=== PATIENT | male | born 1930 | race Caucasian/White ===

== ENCOUNTER 2016-05-17 11:13 | Inpatient (IN) | payer OTHER, BC ==
[~2016-05-17] VITALS: Ht 175.3 cm; Wt 73.0 kg
[~2016-05-17 11:13] MED LIST: ACET160S78 PO; ASPI81TA28 PO; BISA10SU7 PR; CALC-211 PO; CETI1SOL10 PO; CHOL100010 PO; CHOL4POW4 PO; DOCU-94 PO; FAMO1TAB47 PO; LACT PO; MOML PO; PLV75 PO; POLY335019 PO; PRMT25 PO; SODI1000 PO
[2016-05-17] MEDS ORDERED: SODIUM CHLORIDE 0.9% 1000ML 1,000 ML IV STA (12:02)
[2016-05-17] MEDS ORDERED: FENTANYL CITRATE INJ 50 MCG/1 ML 2 ML VIAL IV STA (12:02)
--- NOTE | 2016-05-17 12:07 | EMERGENCY ROOM VISIT NOTE ---
History Report prepared by Mamieibe: Lalitha White Under the Supervision of: Dr. Rod Peralta M.D. First contact with patient: 11:51 Chief Complaint: ABDOMINAL PAIN Stated Complaint: ABD PAIN/CONSTIPATION Nursing Triage Summary: pt to the ED via EMS from [facility] with c/o diffuse abd pain since yesterday and c/o constipation. pt had 2 BM yesterday and had one upon arrival to the ED of soft formed stool which pt was incontinent of pt has hx alzhiemers and is at his baseline mental status abd tender to palp History of Present Illness The patient is an 85 year old male who presents to the Emergency Room with complaints of persistent, diffuse abdominal pain for the past 1 day. He is accompanied by several family members and was brought to the ED via EMS from [facility], where he resides. His reports he has a history of Alzheimer's and this past week, started complaining of constipation. He was given prune juice, and had "4 small bowel movements". He had 2 bowel movements yesterday. On arrival to the ED this morning, he is incontinent and had a formed bowel movement. Yesterday he started complaining of "severe" abdominal pain and some pain around his rectum. His family states he was given Ibuprofen, which has provided some relief. His notes he is at his baseline mentation today. Source of History: patient, family, spouse/significant other () History Limited By: dementia Onset: 1 day [employer] Position: abdomen Symptom Intensity: severe Timing: other (persistent) Modifying Factors (Relieving): ibuprofen Review of Systems See HPI for pertinent positives & negatives. A total of 10 systems reviewed and were otherwise negative. 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 (14) Orthostatic hypotension (15) S/P herniorrhaphy (16) Short-term memory loss (17) Skin cancer (18) Status post placement of implantable loop recorder Surgical Problems: (1) H/O splenectomy (2) Hx of cataract surgery (3) S/P cholecystectomy (4) Status post Mohs surgery Social History Problems: (1) Acute CVA (cerebrovascular accident) Family History FH: Alzheimers disease MOTHER FH: CAD (coronary artery disease) FATHER FHx: alcohol abuse FATHER Kidney disease FATHER Social History Smoking Status: Never Smoker Alcohol Use: none Drug Use: none Marital Status: Housing Status: prison Occupation Status: retired Current/Historical Medications Scheduled Aspirin (Aspirin Ec), 81 MG PO DAILY Calcium Carbonate-Cholecalcife (Oyster Shell Calcium + D), 1 TAB PO BIDM Cetirizine Hcl (Zyrtec Childrens Allergy), 10 ML PO DAILY Cholecalciferol (D 1000), 1,000 INTER.UNIT PO DAILY Clopidogrel Bisulfate (Clopidogrel), 75 MG PO QAM Docusate Sodium (Colace), 1 CAP PO BID Famotidine (Pepcid), 20 MG PO DAILY Lactase (Lactaid), 3,000 UNITS PO TID Lactobacillus (Acidophilus), 1 CAP PO TID Midodrine (Midodrine HCl), 2.5 MG PO BID Polyethylene Glycol 3350 (Miralax), 17 GM PO DAILY [Sodium Chloride Tab], 1 GM PEG DAILY Scheduled PRN Acetaminophen (Tylenol Children's Susp), 20.3 ML PO Q4 PRN for Pain Bisacodyl (Bisac-Evac), 1 SUPP [place] DAILY PRN for Constipation Magnesium Hydroxide (Milk Of Magnesia), 30 ML PO DAILY PRN for Constipation Allergies Coded Allergies: Aspartame (Verified Allergy, Unknown, UNK, 05/17/16) Cephalexin (Verified Allergy, Unknown, UNK, 05/17/16) Lactose (Verified Allergy, Unknown, 05/17/16) LACTOSE INTOLERANT Yellow Dye (Verified Allergy, Unknown, UNK, 05/17/16) Donepezil (Verified Adverse Reaction, Unknown, sleepling too much, 08/15/15 ) gmg Rivastigmine (Verified Adverse Reaction, Unknown, drowsiness, 08/15/15) gmg Physical Exam Vital Signs Date Time Temp Pulse Resp B/P Pulse Ox O2 Delivery O2 Flow Rate FiO2 05/17/16 15:10 82 16 161/95 97 05/17/16 13:06 83 24 165/80 96 Room Air 2/26/17 11:29 36.6 92 20 132/106 96 Physical Exam GENERAL: Patient is elderly and demented appearing. HEENT: No acute trauma, normocephalic atraumatic, mucous membranes moist, no nasal congestion, no scleral icterus. NECK: No stridor, no adenopathy, no meningismus, trachea is midline. LUNGS: No dyspnea. Clear to auscultation and equal bilaterally. No wheeze, no rhonchi. HEART: Regular rate and rhythm. No murmurs, rubs, gallops appreciated. ABDOMEN: Soft, distended abdomen with diffuse tenderness. Decreased bowel sounds in left lower abdomen. BACK: No midline tenderness, no CVA tenderness EXTREMITIES: Normal motion all extremities, no cyanosis, no edema. NEUROLOGIC: Alert and oriented, no acute motor or sensory deficits, no focal weakness, cranial nerves grossly intact. SKIN: No rash, no jaundice, no diaphoresis. Medical Decision & Procedures ER Provider Diagnostic Interpretation: This CT scan was reviewed and interpreted by the radiologist and reviewed by myself. ABDOMEN AND PELVIS CT WITH IV CONTRAST IMPRESSION: 1. Moderate to large amount well-formed stool seen within the colon and rectum. This is most pronounced at the rectum which is distended up to 10 cm. 2. No evidence for bowel obstruction. 3. Fullness within the right extrarenal pelvis. No hydronephrosis. No ureteral calculi. 4. Prior splenectomy. Nodular appearance the pancreatic tail is likely due to accessory splenic tissue. Electronically signed by: Heri Rosado M.D. 05/17/2016 1:26 PM Laboratory Results 05/17/16 11:15 Red Blood Count 4.21, Mean Corpuscular Volume 99.3, Mean Corpuscular Hemoglobin 33.7, Mean Corpuscular Hemoglobin Concent 34.0, Mean Platelet Volume 13.1, Neutrophils (%) (Auto) 71.3, Lymphocytes (%) (Auto) 14.3, Monocytes (%) (Auto) 13.5, Eosinophils (%) (Auto) 0.4, Basophils (%) (Auto) 0.2, Neutrophils # (Auto ) 8.15, Lymphocytes # (Auto) 1.64, Monocytes # (Auto) 1.54, Eosinophils # (Auto ) 0.05, Basophils # (Auto) 0.02 05/17/16 11:15 Test 05/17/16 11:15 05/17/16 14:00 White Blood Count 11.43 K/uL (4.8-10.8) Red Blood Count 4.21 M/uL (4.7-6.1) Hemoglobin 14.2 g/dL (14.0-18.0) Hematocrit 41.8 % (42-52) Mean Corpuscular Volume 99.3 fL (80-100) Mean Corpuscular Hemoglobin 33.7 pg (25-34) Mean Corpuscular Hemoglobin Concent 34.0 g/dl (32-36) Platelet Count 288 K/uL (130-400) Mean Platelet Volume 13.1 fL (7.4-10.4) Neutrophils (%) (Auto) 71.3 % Lymphocytes (%) (Auto) 14.3 % Monocytes (%) (Auto) 13.5 % Eosinophils (%) (Auto) 0.4 % Basophils (%) (Auto) 0.2 % Neutrophils # (Auto) 8.15 K/uL (1.4-6.5) Lymphocytes # (Auto) 1.64 K/uL (1.2-3.4) Monocytes # (Auto) 1.54 K/uL (0.11-0.59) Eosinophils # (Auto) 0.05 K/uL (0-0.5) Basophils # (Auto) 0.02 K/uL (0-0.2) RDW Standard Deviation 49.4 fL (36.4-46.3) RDW Coefficient of Variation 13.7 % (11.5-14.5) Immature Granulocyte % (Auto) 0.3 % Immature Granulocyte # (Auto) 0.03 K/uL (0.00-0.02) Prothrombin Time 11.4 SECONDS (9.0-12.0) Prothromb Time International Ratio 1.1 (0.9-1.1) Anion Gap 7.0 mmol/L (3-11) Estimated GFR () 53.5 Estimated GFR (Non- 46.1 BUN/Creatinine Ratio 27.4 (10-20) Calcium Level 9.4 mg/dl (8.5-10.1) Total Bilirubin 0.9 mg/dl (0.2-1) Direct Bilirubin 0.1 mg/dl (0-0.2) Aspartate Amino Transf (AST/SGOT) 28 U/L (15-37) Alanine Aminotransferase (ALT/SGPT) 20 U/L (12-78) Alkaline Phosphatase 67 U/L (45-117) Total Protein 7.9 gm/dl (6.4-8.2) Albumin 3.7 gm/dl (3.4-5.0) Lipase 190 U/L (73-393) Urine Color YELLOW Urine Appearance CLOUDY (CLEAR) Urine pH 8.0 (4.5-7.5) Urine Specific [place] 1.027 (1.000-1.030) Urine Protein NEG (NEG) Urine Glucose (UA) NEG (NEG) Urine Ketones TRACE (NEG) Urine Occult Blood 1+ (NEG) Urine Nitrite POS (NEG) Urine Bilirubin NEG (NEG) Urine Urobilinogen NEG (NEG) Urine Leukocyte Esterase MODERATE (NEG) Urine WBC (Auto) >30 /hpf (0-5) Urine RBC (Auto) 0-4 /hpf (0-4) Urine Hyaline Casts (Auto) 0 /lpf (0-5) Urine Epithelial Cells (Auto) 0-5 /lpf (0-5) Urine Bacteria (Auto) 4+ (NEG) Laboratory results as reviewed by me. Medications Administered Medications (Trade) Dose Ordered Sig/Jenny Route Start Time Stop Time Status Last Admin Dose Admin Sodium Chloride (Nss 1000ml) 1,000 ml @ 75 mls/hr [id number] STAT IV 05/17/16 12:02 05/17/16 16:48 DC 05/17/16 12:17 75 MLS/HR Fentanyl Citrate 50 mcg 50 mcg NOW STAT IV 05/17/16 12:02 05/17/16 12:04 DC 05/17/16 12:16 50 MCG Sodium Chloride (Nss 500ml) 500 ml @ 999 mls/hr Q31M STAT IV 05/17/16 12:40 05/17/16 13:10 DC 05/17/16 13:18 999 MLS/HR Bisacodyl (Dulcolax Supp) 10 mg NOW STAT WY 05/17/16 14:48 05/17/16 14:49 DC 05/17/16 15:53 10 MG ED Course 1158: The patient was evaluated in room C12B. A complete history and physical exam was performed. 1202: Fentanyl 50 mcg IV, NSS 1000 ml @ 75 mls/hr IV. 1240: NSS 500 ml @ 999 mls/hr IV. 1330: Soap Suds Enema, 1 WY. 1330: I reevaluated the patient. His family is requesting he gets a straight catheter due to a history of urine infections. 1440: I removed 2 to 3 large softball size pieces of stool from his proximal rectum. The patient tolerated the procedure well. 1448: Lactulose 30 gm PO, Bisacodyl 10 mg WY. 1500: I reevaluated the patient. He is resting comfortably. His states she thinks he is more confused than normal and cannot go back to [facility], where he resides. 1508: I discussed the patient's case with Sammie Salcido PA-C, [facility]ist. The patient will be further evaluated. 1547: Lactulose 20 gm PO. 0600: Levaquin 750 mg IV. Medical Decision Differential: Appendicitis, Diverticulitis, PUD/Gastritis, Biliary Pathology, UTI, Pyelonephritis, Renal Colic, Bowel Obstruction, Aortic Pathology, Acute Coronary Syndrome, amongst other pathologies entertained. 85 yr old male brought in by family for evaluation abdominal pain in setting of constipation and now with liquid stools. He has significant dementia though family notes he is not acting himself. CT without findings other than severe constipation. Patient is unable to tolerate Enema, thus digital rectal disimpaction done with massive amount of stool removed from rectum. UA cath consistent with UTI. Given reported worsening mental status family wishes patient to be admitted. He has diffuse abdominal pain that vastly improved after rectal disimpaction. Stable. I suggested attempt at outpatient treatment though family is not OK with this and do not feel comfortable with [facility] going back to [facility]. Initially ordered levaquin for UTI with keflex allergy, though hospitalist will use Rocephin thus levaquin cancelled. Given lactulose and dulcolax for further GI clearance. Consults Time Called: 1505 Consulting Physician: Sammie Salcido PA-C, [facility]grace Returned Call: [phone] I discussed the patient's case with Sammie Salcido PA-C, [facility]ist. The patient will be further evaluated. Impression Primary Impression: Confusion Additional Impressions: UTI (urinary tract infection) Constipation Scribe Attestation The scribe's documentation has been prepared under my direction and personally reviewed by me in its entirety. I confirm that the note above accurately reflects all work, treatment, procedures, and medical decision making performed by me. Departure Information Dispostion Being Evaluated By Hospitalist Referrals No Doctor, Assigned (PCP) Patient Instructions [facility] Health Problem Qualifiers Additional Impressions: UTI (urinary tract infection) Urinary tract infection type: acute cystitis Hematuria presence: without hematuria Qualified Codes: N30.00 - Acute cystitis without hematuria Constipation Constipation type: slow transit constipation Qualified Codes: K59.01 - Slow transit constipation
[2016-05-17 12:10] LABS: BASO % 0.2 %; BASO ABS # 0.02 K/uL (0-0.2); COMPLETE YES; EOS % 0.4 %; HEMATOCRIT 41.8 % (42-52); IG% 0.3 %; LYMPH % 14.3 %; LYMPH ABS # 1.64 K/uL (1.2-3.4); MEAN CELL VOLUME 99.3 fL (80-100); MEAN CORPUSCULAR HEMOGLOBIN 33.7 pg (25-34); MEAN PLATELET VOLUME 13.1 fL (7.4-10.4); MONO % 13.5 %; NEUT % 71.3 %; PLATELET COUNT 288 K/uL (130-400); RED BLOOD COUNT 4.21 M/uL (4.7-6.1); WHITE BLOOD COUNT 11.43 K/uL (4.8-10.8)
[2016-05-17 12:21] LABS: BLOOD UREA NITROGEN 38 mg/dl (7-18); BUN/CREATININE RATIO 27.4 (10-20); CALCIUM 9.4 mg/dl (8.5-10.1); CARBON DIOXIDE 29 mmol/L (21-32); CHLORIDE 99 mmol/L (98-107); GLUCOSE 94 mg/dl (70-99); POTASSIUM 4.2 mmol/L (3.5-5.1); SODIUM 135 mmol/L (136-145)
[2016-05-17 12:24] LABS: ALKALINE PHOSPHATASE 67 U/L (45-117); ALT/SGPT 20 U/L (12-78); AST/SGOT 28 U/L (15-37)
[2016-05-17] MEDS ORDERED: OPTIRAY 320 IV PRN (12:30)
[2016-05-17] MEDS ORDERED: CHOL100041 PO (12:39)
[2016-05-17] MEDS ORDERED: CETI1SYP22 PO (12:39)
[2016-05-17] MEDS ORDERED: SODIUM CHLORIDE PEG (12:39)
[2016-05-17] MEDS ORDERED: SODIUM CHLORIDE 0.9% 500ML 500 ML IV STA (12:40)
--- NOTE | 2016-05-17 13:28 | DIAGNOSTIC IMAGING REPORT ---
ABDOMEN AND PELVIS CT WITH IV CONTRAST CT DOSE: 491.54 mGy.cm HISTORY: diffuse abdominal pain, h/o surg 18 yrs ago TECHNIQUE: Multiaxial CT images of the abdomen and pelvis were performed following the use of intravenous contrast. COMPARISON STUDY: Abdomen and pelvis CT 10/25/2013. FINDINGS: Mild dependent changes seen within the lung bases. No pneumoperitoneum. No pneumatosis. No suspicious lytic or blastic osseous lesions. The spleen is surgically absent. Nodular appearance to the pancreatic tail remains unchanged. This could be due to accessory splenic tissue. The liver and adrenal glands are unremarkable. Normal bladder. Prior prostatectomy. Large amount of stool within the rectum which is distended up to 10 cm. There is a rectosigmoid anastomosis present. There is a right extrarenal pelvis which demonstrates mild fullness. No hydronephrosis. No ureteral calculi identified. No dilated loops of small bowel to suggest an obstruction. The appendix is likely surgically absent. No retroperitoneal lymphadenopathy. Moderate to large amount of stool seen throughout the colon. This is most pronounced at the transverse colon. Suspect prior right hemicolectomy. The gallbladder is not identified and is likely surgically absent. IMPRESSION: 1. Moderate to large amount well-formed stool seen within the colon and rectum. This is most pronounced at the rectum which is distended up to 10 cm. 2. No evidence for bowel obstruction. 3. Fullness within the right extrarenal pelvis. No hydronephrosis. No ureteral calculi. 4. Prior splenectomy. Nodular appearance the pancreatic tail is likely due to accessory splenic tissue. Electronically signed by: Heri Rosado M.D. 05/17/2016 1:26 PM Dictated Date/Time: 05/17/2016 1:19 PM
[2016-05-17] MEDS ORDERED: SOAP SUDS ENEMA PR STA (13:30)
[2016-05-17 14:36] LABS: URINE APPEARANCE CLOUDY (CLEAR); URINE BILIRUBIN NEG (NEG); URINE COLOR YELLOW; URINE EPITHELIAL CELL AUTO 0-5 /lpf (0-5); URINE NITRITE POS (NEG); URINE SPECIFIC GRAVITY 1.027 (1.000-1.030); UROBILINOGEN NEG (NEG); ZZURINE CULT IF INDIC CATH YES
[2016-05-17 14:40] LABS: MANUAL MICROSCOPIC REQUIRED? NO; REVIEW REQ? NO
[2016-05-17] MEDS ORDERED: LACTULOSE SYRUP 20 GM/30 ML UDC PO STA ×2 (14:48→15:47)
[2016-05-17] MEDS ORDERED: BISACODYL 10 MG SUPP PR STA (14:48)
[2016-05-17] MEDS ORDERED: FAMO20TA9 PO (15:35)
[2016-05-17] MEDS ORDERED: LACTCAP3 PO (15:35)
[2016-05-17] MEDS ORDERED: LACT3000 PO (15:35)
[2016-05-17] MEDS ORDERED: ONDANSETRON INJ 2 MG/ML 2 ML VIAL IV PRN (15:45)
[2016-05-17 15:53] LABS: INR 1.1 (0.9-1.1); PROTHROMBIN TIME (PATIENT) 11.4 SECONDS (9.0-12.0)
[2016-05-17] MEDS ORDERED: BISACODYL 10 MG SUPP PR PRN (16:00)
[2016-05-17] MEDS ORDERED: MAGNESIUM HYDROXIDE SUSP 30 ML UDC PO PRN (16:00)
--- NOTE | 2016-05-17 16:04 | History and Physical ---
History & Physical Date & Time of Service: May 17, 2016 at 15:45 Chief Complaint: Abd Pain/Constipation Primary Care Physician: Rober Ramirez D.O. History of Present Illness Source: patient This is an 85 y/o male with PMHx of CVA, Chronic afib not on anticoagulation, CKD stage 3, dementia, and other problems as outlined below who presents to the ED from [facility] c/o diffuse abdominal pain since yesterday. History is primarily obtained from at bedside as patient is unable to provide clear history due to dementia. Per , yesterday afternoon patient started complaining of diffuse abdominal pain and rectal pain. Pain was aggravated when pt was in a seated position. Last normal BM was 5 days ago. He was given prune juice, miralax and MOM at [facility] with only small BMs. Patient has a history of CVA x 3 from which he sustained short term memory deficits. Patient has chronic afib however he is no longer on anticoagulation as he is a fall risk. Pt denies fever/chills, chest pain, SOB, N/V, bladder issues, LE edema , calf pain, lightheadedness/dizziness. In the ED, vitals are stable. UA 4+ bacteria and + nitrites. CT abd/pelvis + large amounts of stool in colon and rectum. ED physician disimpacted large amounts of stool. Pt is currently comfortable and will be admitted for further evaluation and treatment. Past Medical/Surgical History Medical Problems: (1) Atrial fibrillation Permanent Comment: paroxysmal, anticoagulated on Coumadin Status: Chronic (2) Calculus Of Kidney Permanent Comment: s/p stone extraction Status: Resolved (3) carcinoma of the appendix Status: Resolved (4) Carpal tunnel syndrome Status: Chronic (5) CVA (cerebral infarction) Status: Chronic (6) Dementia Status: Chronic (7) GERD (gastroesophageal reflux disease) Status: Chronic (8) Hyperlipidemia Nec/Nos Status: Chronic (9) Hypokalemia Status: Chronic (10) Lactose intolerance Status: Chronic (11) Malign Neopl Prostate Permanent Comment: s/p radical prostate removal Status: Resolved (12) Neuropathy Status: Chronic (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 Status: Chronic (14) Orthostatic hypotension Status: Chronic (15) S/P herniorrhaphy Status: Resolved (16) Short-term memory loss Status: Chronic (17) 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 Status: Resolved (18) Status post placement of implantable loop recorder Status: Chronic Surgical Problems: (1) H/O splenectomy Status: Chronic (2) Hx of cataract surgery Status: Chronic (3) S/P cholecystectomy Status: Chronic (4) Status post Mohs surgery Status: Chronic Family History FH: Alzheimers disease MOTHER FH: CAD (coronary artery disease) FATHER FHx: alcohol abuse FATHER Kidney disease FATHER Social History Smoking Status: Never Smoker Alcohol Use: none Drug Use: none Marital Status: Housing status: other ([facility]) 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) Immunizations History of Influenza Vaccine: Yes Influenza Vaccine Date: Dec 28, 2010 History of Tetanus Vaccine?: Yes History of Pneumococcal: Yes History of Hepatitis B Vaccine: No Multi-Drug Resistant Organisms History of MDRO: No Allergies Coded Allergies: Aspartame (Verified Allergy, Unknown, UNK, 05/17/16) Cephalexin (Verified Allergy, Unknown, UNK, 05/17/16) Lactose (Verified Allergy, Unknown, 05/17/16) LACTOSE INTOLERANT Yellow Dye (Verified Allergy, Unknown, UNK, 05/17/16) Donepezil (Verified Adverse Reaction, Unknown, sleepling too much, 08/15/15 ) gmg Rivastigmine (Verified Adverse Reaction, Unknown, drowsiness, 08/15/15) gmg Home Medications Scheduled Aspirin (Aspirin Ec), 81 MG PO DAILY Calcium Carbonate-Cholecalcife (Oyster Shell Calcium + D), 1 TAB PO BIDM Cetirizine Hcl (Zyrtec Childrens Allergy), 10 ML PO DAILY Cholecalciferol (D 1000), 1,000 INTER.UNIT PO DAILY Clopidogrel Bisulfate (Clopidogrel), 75 MG PO QAM Docusate Sodium (Colace), 1 CAP PO BID Famotidine (Pepcid), 20 MG PO DAILY Lactase (Lactaid), 3,000 UNITS PO TID Lactobacillus (Acidophilus), 1 CAP PO TID Midodrine (Midodrine HCl), 2.5 MG PO BID Polyethylene Glycol 3350 (Miralax), 17 GM PO DAILY [Sodium Chloride Tab], 1 GM PEG DAILY Scheduled PRN Acetaminophen (Tylenol Children's Susp), 20.3 ML PO Q4 PRN for Pain Bisacodyl (Bisac-Evac), 1 SUPP DC DAILY PRN for Constipation Magnesium Hydroxide (Milk Of Magnesia), 30 ML PO DAILY PRN for Constipation Review of Systems Constitutional: + fatigue, No chills, No fever, No weakness Eyes: No worsening of vision ENT: No hearing loss Respiratory: No cough, No shortness of breath Cardiovascular: No chest pain, No claudication, No edema Abdomen: + constipation, + pain, No GI bleeding, No diarrhea, No nausea, No vomiting Musculoskeletal: No calf pain, No swelling Genitourinary - Male: + urinary incontinence (chronic), No dysuria Neurologic: No weakness Psychiatric: No depression symptoms Endocrine: + fatigue Hematologic / Lymphatic: No abnormal bleeding/bruising Integumentary: No new/changing skin lesions Physical Exam Vital Signs Date Time Temp Pulse Resp B/P Pulse Ox O2 Delivery O2 Flow Rate FiO2 05/17/16 13:06 83 24 165/80 96 Room Air 05/17/16 11:29 36.6 92 20 132/106 96 General Appearance: WD/WN, no apparent distress, + pertinent finding (Pt is laying in bed with at bedside) Head: normocephalic, atraumatic Eyes: normal inspection ENT: hearing grossly normal Neck: supple Respiratory/Chest: chest non-tender, lungs clear, normal breath sounds, no respiratory distress Cardiovascular: regular rate, rhythm, no edema, no murmur Abdomen/GI: soft, + tenderness, + pertinent finding (BS diminished ) Back: normal inspection Extremities/Musculoskelatal: normal inspection, no calf tenderness, no pedal edema Neurologic/Psych: alert, normal mood/affect, oriented x 3 Skin: normal color, warm/dry Diagnostics Laboratory Results Results Past 24 Hours Test 05/17/16 11:15 05/17/16 14:00 05/17/16 15:41 Range/Units White Blood Count 11.43 4.8-10.8 K/uL Red Blood Count 4.21 4.7-6.1 M/uL Hemoglobin 14.2 14.0-18.0 g/dL Hematocrit 41.8 42-52 % Mean Corpuscular Volume 99.3 80-100 fL Mean Corpuscular Hemoglobin 33.7 25-34 pg Mean Corpuscular Hemoglobin Concent 34.0 32-36 g/dl Platelet Count 288 130-400 K/uL Mean Platelet Volume 13.1 7.4-10.4 fL Neutrophils (%) (Auto) 71.3 % Lymphocytes (%) (Auto) 14.3 % Monocytes (%) (Auto) 13.5 % Eosinophils (%) (Auto) 0.4 % Basophils (%) (Auto) 0.2 % Neutrophils # (Auto) 8.15 1.4-6.5 K/uL Lymphocytes # (Auto) 1.64 1.2-3.4 K/uL Monocytes # (Auto) 1.54 0.11-0.59 K/uL Eosinophils # (Auto) 0.05 0-0.5 K/uL Basophils # (Auto) 0.02 0-0.2 K/uL RDW Standard Deviation 49.4 36.4-46.3 fL RDW Coefficient of Variation 13.7 11.5-14.5 % Immature Granulocyte % (Auto) 0.3 % Immature Granulocyte # (Auto) 0.03 0.00-0.02 K/uL Sodium Level 135 136-145 mmol/L Potassium Level 4.2 3.5-5.1 mmol/L Chloride Level 99 98-107 mmol/L Carbon Dioxide Level 29 21-32 mmol/L Anion Gap 7.0 3-11 mmol/L Blood Urea Nitrogen 38 7-18 mg/dl Creatinine 1.40 0.60-1.40 mg/dl Estimated GFR () 53.5 Estimated GFR (Non- 46.1 BUN/Creatinine Ratio 27.4 10-20 Random Glucose 94 70-99 mg/dl Calcium Level 9.4 8.5-10.1 mg/dl Total Bilirubin 0.9 0.2-1 mg/dl Direct Bilirubin 0.1 0-0.2 mg/dl Aspartate Amino Transf (AST/SGOT) 28 15-37 U/L Alanine Aminotransferase (ALT/SGPT) 20 12-78 U/L Alkaline Phosphatase 67 45-117 U/L Total Protein 7.9 6.4-8.2 gm/dl Albumin 3.7 3.4-5.0 gm/dl Lipase 190 73-393 U/L Urine Color YELLOW Urine Appearance CLOUDY CLEAR Urine pH 8.0 4.5-7.5 Urine Specific [place] 1.027 1.000-1.030 Urine Protein NEG NEG Urine Glucose (UA) NEG NEG Urine Ketones TRACE NEG Urine Occult Blood 1+ NEG Urine Nitrite POS NEG Urine Bilirubin NEG NEG Urine Urobilinogen NEG NEG Urine Leukocyte Esterase MODERATE NEG Urine WBC (Auto) >30 0-5 /hpf Urine RBC (Auto) 0-4 0-4 /hpf Urine Hyaline Casts (Auto) 0 0-5 /lpf Urine Epithelial Cells (Auto) 0-5 0-5 /lpf Urine Bacteria (Auto) 4+ NEG Microbiology Results 05/17/16 Urine Culture, Received Pending Diagnostic Radiology CT ABD/PELVIS IMPRESSION: 1. Moderate to large amount well-formed stool seen within the colon and rectum. This is most pronounced at the rectum which is distended up to 10 cm. 2. No evidence for bowel obstruction. 3. Fullness within the right extrarenal pelvis. No hydronephrosis. No ureteral calculi. 4. Prior splenectomy. Nodular appearance the pancreatic tail is likely due to accessory splenic tissue. Impression Assessment and Plan ABDOMINAL PAIN SECONDARY TO CONSTIPATION pt presented with diffuse abd pain; last BM 5 days ago -admit to med/surg -CT abd/pelvis + moderate to large amount well-formed stool seen within the colon and rectum. This is most pronounced at the rectum which is distended up to 10 cm. -digital disimpaction in the ED -cont bowel regimen -monitor UTI -afebrile with mild leukocytosis -UA 4+ bacteria and + nitrites; urine cx-pending -start IVF and Rocephin -pt chronically incontinent of urine; not complaining of urinary sxs CHRONIC AFIB -EKG NSR -not on anticoagulation 2* fall risk -cont ASA -monitor CKD STAGE 3 -creatinine is around baseline at 1.4 -monitor daily and avoid nephrotoxic agents when able ORTHOSTATIC HYPOTENSION -cont midodrine -fall precautions GERD -cont Pepcid DYSLIPIDEMIA -not on medication DVT PROPHYLAXIS -high risk 2* afib -subq heparin CODE STATUS -DNR per discussion with at bedside upon admission DISPO -Pt seen in collaboration with Dr. Scott. Please see her addendum for further details. Thanks! VTE Prophylaxis VTE Risk Assessment Done? Y/N: Yes Risk Level: Moderate
[2016-05-17] MEDS ORDERED: PATIENT'S HEIGHT AND/OR WEIGHT NEEDED SCH (16:15)
[2016-05-17] MEDS ORDERED: TRAMADOL HCL 50 MG TAB PO PRN (17:00)
[2016-05-17] MEDS: MIDODRINE 2.5 MG TAB PO SCH (17:00)
[2016-05-17 17:10] VITALS: BP 165/80; PULSE 78; TEMP 36.7; O2SAT 95
--- NOTE | 2016-05-17 17:11 | Progress Note ---
Progress Note Date of Service May 17, 2016. Progress Note Patient was seen and evaluated with [place] Merino. Patient came in with c/o abdominal pain, CT scan shows- stools within colon and rectum. Had digital disimpaction in ED - had significant stools out On exam, AAOX3, disroriented x 3 as per baseline, Abd- soft, mild tenderness in suprapubic region, BS present, Lungs- clear, Heart-s1, s2 normal, Ext- no edema ASSESSMENT AND PLAN : ABDOMINAL PAIN SECONDARY TO CONSTIPATION Pt presented with diffuse abd pain; last BM 5 days ago S/P Digital disimpaction by ED physician- significant amount of stool was out -Work up - CT abd/pelvis + moderate to large amount well-formed stool seen within the colon and rectum. This is most pronounced at the rectum which is distended up to 10 cm. -cont bowel regimen -monitor UTI -afebrile with mild leukocytosis -UA 4+ bacteria and + nitrites; urine cx-pending - IVF and Rocephin -pt chronically incontinent of urine; not complaining of urinary sxs CHRONIC AFIB -EKG NSR -not on anticoagulation 2* fall risk -cont ASA -monitor CKD STAGE 3 -creatinine is around baseline at 1.4 -monitor and avoid nephrotoxic agents when able ORTHOSTATIC HYPOTENSION -cont midodrine -fall precautions GERD -cont Pepcid DYSLIPIDEMIA -not on medication DEMENTIA Advanced- disoriented to place, time, person. Per , this is his baseline--- > recognizes his family members but not grand kids -Monitor DVT PROPHYLAXIS -high risk 2* afib -subq heparin CODE STATUS -DNR per discussion with at bedside upon admission DISPO -Observation status Discussed with by bedside,.
[2016-05-17 17:14] VITALS: BP 165/80; PULSE 78; TEMP 36.7; O2SAT 94; Ht 175.3 cm; Wt 73.0 kg
[2016-05-17] MEDS: ACETAMINOPHEN 325 MG TAB PO PRN (17:54)
[2016-05-17] MEDS: CEFTRIAXONE SOD INJ 1 GM in DEXTROSE 5% ADD-VANTAGE 50ML 50 ML IV SCH (18:11)
[2016-05-17] MEDS: SODIUM CHLORIDE 0.9% 1000ML 1,000 ML IV SCH (18:11)
[2016-05-17] MEDS: CALCIUM CARBONATE 1250MG TAB PO SCH (18:11)
[2016-05-17] MEDS: ENOXAPARIN 40 MG/0.4 ML SYR SQ SCH (18:13)
[2016-05-17] MEDS: DOCUSATE SODIUM 100 MG CAP PO SCH (20:31)
[2016-05-17] MEDS: LACTASE 3000 UNIT TAB PO SCH (20:31)
[2016-05-17] MEDS: LACTOBACILLUS ACIDOPHILUS (FLORANEX) TAB PO SCH (20:32)
[2016-05-17 23:40] VITALS: BP 141/79; PULSE 87; TEMP 36.7; O2SAT 96
[2016-05-18] MEDS: SODIUM CHLORIDE 0.9% 1000ML 1,000 ML IV SCH (05:10)
[2016-05-18] MEDS ORDERED: LEVAQUIN 750MG / 150ML D5W IV ONE (06:00)
[2016-05-18 06:02] LABS: HEMATOCRIT 39.6 % (42-52); MEAN CELL VOLUME 102.3 fL (80-100); MEAN CORPUSCULAR HEMOGLOBIN 34.4 pg (25-34); MEAN CORPUSCULAR HGB CONC 33.6 g/dl (32-36); MEAN PLATELET VOLUME 13.1 fL (7.4-10.4); PLATELET COUNT 259 K/uL (130-400); RED BLOOD COUNT 3.87 M/uL (4.7-6.1); WHITE BLOOD COUNT 9.36 K/uL (4.8-10.8)
[2016-05-18 06:34] LABS: BUN/CREATININE RATIO 27.1 (10-20); CALCIUM 8.9 mg/dl (8.5-10.1); CREATININE 1.2 mg/dl (0.60-1.40); POTASSIUM 3.8 mmol/L (3.5-5.1)
[2016-05-18 07:25] VITALS: BP 132/70; PULSE 70; TEMP 36.9; O2SAT 99
[2016-05-18] MEDS: CALCIUM CARBONATE 1250MG TAB PO SCH ×2 (07:54→17:52)
[2016-05-18] MEDS: CLOPIDOGREL BISULFATE 75 MG TAB PO SCH (07:56)
[2016-05-18] MEDS: CHOLECALCIFEROL 1000 INTER.UNIT TAB PO SCH (07:56)
[2016-05-18] MEDS: ASPIRIN 81 MG ECTAB PO SCH (07:56)
[2016-05-18] MEDS: POLYETHYLENE (MIRALAX) 17 GM PACK PO SCH (07:56)
[2016-05-18] MEDS: MIDODRINE 2.5 MG TAB PO SCH ×2 (07:56→17:52)
[2016-05-18] MEDS: DOCUSATE SODIUM 100 MG CAP PO SCH (07:57)
[2016-05-18] MEDS: FAMOTIDINE 20 MG TAB PO SCH (07:57)
[2016-05-18] MEDS: LACTASE 3000 UNIT TAB PO SCH ×3 (07:57→20:39)
[2016-05-18] MEDS: CETIRIZINE HCL 10 MG TAB PO SCH (07:58)
[2016-05-18] MEDS: LACTOBACILLUS ACIDOPHILUS (FLORANEX) TAB PO SCH ×3 (07:58→20:39)
[2016-05-18 08:00] VITALS: O2SAT 99
--- NOTE | 2016-05-18 10:14 | Progress Note ---
Internal Med Progress Note Date of Service: May 18, 2016. Provider Documentation: SUBJECTIVE: Patient is calm, comfortable, Awake, alert, disoriented x 3 (baseline) Denies any abdominal pain, urinary burning, nausea, vomiting Has not had any BMs since on floors OBJECTIVE: Vital Signs-as noted below Exam: General-AA, Disoriented x 3, No distress Neck-Supple Lungs-AEBE, no wheezing, rhonchi, rales Heart-S1, S2 normal Abdomen-Soft, non tender, non distended, BS present Extremities-No edema Neuro-Grossly no focal deficits Lab data as noted below. ASSESSMENT & PLAN: ABDOMINAL PAIN SECONDARY TO CONSTIPATION : Pt presented with diffuse abd pain; last BM 5 days ago S/P Digital disimpaction by ED physician- significant amount of stool was out ( per ER physician -size of soft balls x 3) -Work up - CT abd/pelvis + moderate to large amount well-formed stool seen within the colon and rectum. This is most pronounced at the rectum which is distended up to 10 cm. -cont bowel regimen - Colace PO BID, Miralex 17 gram daily, Dulcolax 10 pr prn UTI : -Afebrile with mild leukocytosis -UA 4+ bacteria and + nitrites; urine cx-pending - IVF -discontinue as tolerating PO well. - IV Rocephin (Day 2) - Pt chronically incontinent of urine; not complaining of urinary sxs CHRONIC ATRIAL FIBRILLATION : -EKG NSR -Not on anticoagulation secondary to fall risk -Cont ASA -Monitor CKD STAGE 3 -creatinine is around baseline at 1.4 -Avoid nephrotoxic agents when able ORTHOSTATIC HYPOTENSION -Cont midodrine -Fall precautions GERD -cont Pepcid DYSLIPIDEMIA -not on medication DEMENTIA Advanced- disoriented to place, time, person. Per , this is his baseline--- > recognizes his family members but not grand kids -Monitor DVT PROPHYLAXIS -high risk 2* afib -subq heparin CODE STATUS -DNR per discussion with at bedside upon admission DISPO -Observation status -Plan is to discharge to [facility] once medically stable- likely in AM, Urine cx- pending Discussed with by bedside,. Vital Signs: Date Time Temp Pulse Resp B/P Pulse Ox O2 Delivery O2 Flow Rate FiO2 05/18/16 07:25 36.9 70 16 132/70 99 05/18/16 00:00 Room Air 05/17/16 23:40 36.7 87 18 141/79 96 Room Air 05/17/16 20:00 Room Air 05/17/16 17:14 36.7 78 20 165/80 94 Room Air 05/17/16 17:10 36.7 78 20 165/80 95 Room Air 05/17/16 15:10 82 16 161/95 97 05/17/16 13:06 83 24 165/80 96 Room Air 05/17/16 11:29 36.6 92 20 132/106 96 Lab Results: Results Past 24 Hours Test 05/17/16 11:15 05/17/16 14:00 05/18/16 05:33 Range/Units White Blood Count 11.43 9.36 4.8-10.8 K/uL Red Blood Count 4.21 3.87 4.7-6.1 M/uL Hemoglobin 14.2 13.3 14.0-18.0 g/dL Hematocrit 41.8 39.6 42-52 % Mean Corpuscular Volume 99.3 102.3 80-100 fL Mean Corpuscular Hemoglobin 33.7 34.4 25-34 pg Mean Corpuscular Hemoglobin Concent 34.0 33.6 32-36 g/dl Platelet Count 288 259 130-400 K/uL Mean Platelet Volume 13.1 13.1 7.4-10.4 fL Neutrophils (%) (Auto) 71.3 % Lymphocytes (%) (Auto) 14.3 % Monocytes (%) (Auto) 13.5 % Eosinophils (%) (Auto) 0.4 % Basophils (%) (Auto) 0.2 % Neutrophils # (Auto) 8.15 1.4-6.5 K/uL Lymphocytes # (Auto) 1.64 1.2-3.4 K/uL Monocytes # (Auto) 1.54 0.11-0.59 K/uL Eosinophils # (Auto) 0.05 0-0.5 K/uL Basophils # (Auto) 0.02 0-0.2 K/uL RDW Standard Deviation 49.4 52.5 36.4-46.3 fL RDW Coefficient of Variation 13.7 14.1 11.5-14.5 % Immature Granulocyte % (Auto) 0.3 % Immature Granulocyte # (Auto) 0.03 0.00-0.02 K/uL Prothrombin Time 11.4 9.0-12.0 SECONDS Prothromb Time International Ratio 1.1 0.9-1.1 Sodium Level 135 136 136-145 mmol/L Potassium Level 4.2 3.8 3.5-5.1 mmol/L Chloride Level 99 100 98-107 mmol/L Carbon Dioxide Level 29 29 21-32 mmol/L Anion Gap 7.0 7.0 3-11 mmol/L Blood Urea Nitrogen 38 33 7-18 mg/dl Creatinine 1.40 1.20 0.60-1.40 mg/dl Estimated GFR () 53.5 64.4 Estimated GFR (Non- 46.1 55.6 BUN/Creatinine Ratio 27.4 27.1 10-20 Random Glucose 94 84 70-99 mg/dl Calcium Level 9.4 8.9 8.5-10.1 mg/dl Total Bilirubin 0.9 0.2-1 mg/dl Direct Bilirubin 0.1 0-0.2 mg/dl Aspartate Amino Transf (AST/SGOT) 28 15-37 U/L Alanine Aminotransferase (ALT/SGPT) 20 12-78 U/L Alkaline Phosphatase 67 45-117 U/L Total Protein 7.9 6.4-8.2 gm/dl Albumin 3.7 3.4-5.0 gm/dl Lipase 190 73-393 U/L Urine Color YELLOW Urine Appearance CLOUDY CLEAR Urine pH 8.0 4.5-7.5 Urine Specific [place] 1.027 1.000-1.030 Urine Protein NEG NEG Urine Glucose (UA) NEG NEG Urine Ketones TRACE NEG Urine Occult Blood 1+ NEG Urine Nitrite POS NEG Urine Bilirubin NEG NEG Urine Urobilinogen NEG NEG Urine Leukocyte Esterase MODERATE NEG Urine WBC (Auto) >30 0-5 /hpf Urine RBC (Auto) 0-4 0-4 /hpf Urine Hyaline Casts (Auto) 0 0-5 /lpf Urine Epithelial Cells (Auto) 0-5 0-5 /lpf Urine Bacteria (Auto) 4+ NEG Est Creatinine Clear Calc Drug Dose 46.7 ml/min Microbiology Results 05/17/16 Urine Culture - Preliminary, Resulted Escherichia Coli
[2016-05-18 15:50] VITALS: BP 170/89; PULSE 80; TEMP 36.8; O2SAT 97
[2016-05-18 16:04] VITALS: BP 139/82
[2016-05-18] MEDS: CEFTRIAXONE SOD INJ 1 GM in DEXTROSE 5% ADD-VANTAGE 50ML 50 ML IV SCH (17:51)
[2016-05-18] MEDS: ENOXAPARIN 40 MG/0.4 ML SYR SQ SCH (17:53)
[2016-05-18] MEDS: DOCUSATE SODIUM 100 MG/10 ML UDC PO SCH (20:39)
[2016-05-18 23:53] VITALS: BP 164/77; PULSE 83; TEMP 36.8; O2SAT 96
[2016-05-19 06:43] VITALS: BP 177/88; PULSE 68; TEMP 36.7; O2SAT 97
[2016-05-19 07:28] VITALS: BP 162/75; PULSE 68
[2016-05-19] MEDS: POLYETHYLENE (MIRALAX) 17 GM PACK PO SCH (08:21)
[2016-05-19] MEDS: CLOPIDOGREL BISULFATE 75 MG TAB PO SCH (08:21)
[2016-05-19] MEDS: CETIRIZINE HCL 10 MG TAB PO SCH (08:21)
[2016-05-19] MEDS: CHOLECALCIFEROL 1000 INTER.UNIT TAB PO SCH (08:22)
[2016-05-19] MEDS: MIDODRINE 2.5 MG TAB PO SCH (08:22)
[2016-05-19] MEDS: LACTOBACILLUS ACIDOPHILUS (FLORANEX) TAB PO SCH ×2 (08:22→14:34)
[2016-05-19] MEDS: CALCIUM CARBONATE 1250MG TAB PO SCH (08:22)
[2016-05-19] MEDS: LACTASE 3000 UNIT TAB PO SCH ×2 (08:23→14:34)
[2016-05-19] MEDS: FAMOTIDINE 20 MG TAB PO SCH (08:23)
[2016-05-19] MEDS: DOCUSATE SODIUM 100 MG/10 ML UDC PO SCH (08:24)
[2016-05-19] MEDS: ACETAMINOPHEN 325 MG TAB PO PRN (08:27)
--- NOTE | 2016-05-19 09:02 | Progress Note ---
Internal Med Progress Note Date of Service: May 19, 2016. Provider Documentation: SUBJECTIVE: Patient is comfortable Awake, alert, disoriented x 3 (baseline) Denies any abdominal pain, urinary burning, nausea, vomiting Did have a BM yesterday and today OBJECTIVE: Vital Signs-as noted below Exam: General-AA, Disoriented x 3, No distress Neck-Supple Lungs-AEBE, no wheezing, rhonchi, rales Heart-S1, S2 normal Abdomen-Soft, non tender, non distended, BS present Extremities-No edema Neuro-Grossly no focal deficits Lab data as noted below. ASSESSMENT & PLAN: ABDOMINAL PAIN SECONDARY TO CONSTIPATION : Resolved Pt presented with diffuse abd pain; last BM 5 days ago S/P Digital disimpaction by ED physician- significant amount of stool was out ( per ER physician -size of soft balls x 3). Had 1 BM yesterday and today. -Work up - CT abd/pelvis + moderate to large amount well-formed stool seen within the colon and rectum. This is most pronounced at the rectum which is distended up to 10 cm. -Cont bowel regimen - Colace PO BID, Miralex 17 gram daily, Dulcolax 10 pr prn on discharge too UTI : (E coli) -Afebrile with mild leukocytosis -UA 4+ bacteria and + nitrites; urine cx-pending - IVF - discontinue as tolerating PO well. - IV Rocephin (Day 2)--> Change to PO cipro per c/s results - Pt chronically incontinent of urine; not complaining of urinary sxs CHRONIC ATRIAL FIBRILLATION : -EKG NSR -Not on anticoagulation secondary to fall risk -Cont ASA -Monitor CKD STAGE 3 -creatinine is around baseline at 1.4 -Avoid nephrotoxic agents when able ORTHOSTATIC HYPOTENSION -Cont midodrine -Fall precautions GERD -cont Pepcid DYSLIPIDEMIA -not on medication DEMENTIA Advanced- disoriented to place, time, person. Per , this is his baseline--- > recognizes his family members but not grand kids -Monitor DVT PROPHYLAXIS -high risk 2* afib -subq heparin CODE STATUS -DNR per discussion with at bedside upon admission DISPO -Observation status Ok to discharge today to [facility] . aware about todays discharge plan . Vital Signs: Date Time Temp Pulse Resp B/P Pulse Ox O2 Delivery O2 Flow Rate FiO2 05/19/16 08:00 Room Air 05/19/16 07:28 68 162/75 05/19/16 06:43 36.7 68 18 177/88 97 Room Air 05/19/16 00:00 Room Air 05/18/16 23:53 36.8 83 18 164/77 96 Room Air 05/18/16 20:00 Room Air 05/18/16 16:04 139/82 05/18/16 16:00 Room Air 05/18/16 15:50 36.8 80 18 170/89 97 Room Air
[2016-05-19] MEDS ORDERED: CPR500 PO (09:04)
--- NOTE | 2016-05-19 09:08 | Discharge Summary ---
Discharge Summary Date of Service May 19, 2016. Discharge Summary Admission Date: May 17, 2016 at 15:40 Discharge Date: May 19, 2016 Discharge Disposition: [facility] facility ([facility]) Principal Diagnosis: 1. Abdominal pain secondary to constipation 2. UTI (E coli) Secondary Diagnoses/Problems: 1. Dementia, advanced 2. CKD-II 3. GERD 4. Orthostatic hypotension 5. Dyslipidemia Procedures: IV fluids Manual disimpaction of stools CT abd/pelvis IV antibiotics Urine c/s PT/OT Consultations: None Pending Studies/Follow-Up: Instructions / Follow-Up MEDICATION CHANGES: 1. Bowel regimen as directed. Encourage PO fluids/Activity as tolerated to help with chronic constipation besides a good bowel regimen 2. Ciprofloxacin 500 mg PO BID for 5 more days to complete course of 7 days of antibiotics for UTI , E coli FOLLOW UP 1. Follow up with PCP in 1 week Medication Reconciliation New Medications: Ciprofloxacin (Ciprofloxacin HCl) 500 Mg Tab 500 MG PO BID for 5 Days Continued Medications: Acetaminophen (Tylenol Children's Susp) 160 Mg/5 Ml Susp 20.3 ML PO Q4 PRN for Pain Aspirin (Aspirin Ec) 81 Mg Tab 81 MG PO DAILY Bisacodyl (Bisac-Evac) 10 Mg Sup 1 SUPP MT DAILY PRN for Constipation Calcium Carbonate-Cholecalcife (Oyster Shell Calcium + D) 1 Tab Tab 1 TAB PO BIDM Cetirizine Hcl (Zyrtec Childrens Allergy) 1 Mg/Ml Syp 10 ML PO DAILY Cholecalciferol (D 1000) 1,000 Unit Cap 1000 INTER.UNIT PO DAILY Clopidogrel Bisulfate (Clopidogrel) 75 Mg Tab 75 MG PO QAM for 30 Days, #30 TAB Docusate Sodium (Colace) 100 Mg Cap 1 CAP PO BID for 30 Days, #60 CAP Famotidine (Pepcid) 20 Mg Tab 20 MG PO DAILY, TAB Lactase (Lactaid) 3,000 Unit Tab 3000 UNITS PO TID Lactobacillus (Acidophilus) 1 Cap Cap 1 CAP PO TID Magnesium Hydroxide (Milk Of Magnesia) 30 Ml Susp 30 ML PO DAILY PRN for Constipation, ML Midodrine (Midodrine HCl) 2.5 Mg Tab 2.5 MG PO BID Polyethylene Glycol 3350 (Miralax) 1 Pow Pow 17 GM PO DAILY, GM [Sodium Chloride Tab] () 1 GM PEG DAILY Admission Information HPI (per Admitting provider): This is an 85 y/o male with PMHx of CVA, Chronic afib not on anticoagulation, CKD stage 3, dementia, and other problems as outlined below who presents to the ED from [facility] c/o diffuse abdominal pain since yesterday. History is primarily obtained from at bedside as patient is unable to provide clear history due to dementia. Per , yesterday afternoon patient started complaining of diffuse abdominal pain and rectal pain. Pain was aggravated when pt was in a seated position. Last normal BM was 5 days ago. He was given prune juice, miralax and MOM at [facility] with only small BMs. Patient has a history of CVA x 3 from which he sustained short term memory deficits. Patient has chronic afib however he is no longer on anticoagulation as he is a fall risk. Pt denies fever/chills, chest pain, SOB, N/V, bladder issues, LE edema , calf pain, lightheadedness/dizziness. In the ED, vitals are stable. UA 4+ bacteria and + nitrites. CT abd/pelvis + large amounts of stool in colon and rectum. ED physician disimpacted large amounts of stool. Pt is currently comfortable and will be admitted for further evaluation and treatment. Physical Exam (per Admitting): General Appearance: WD/WN, no apparent distress, + pertinent finding (Pt is laying in bed with at bedside) Head: normocephalic, atraumatic Eyes: normal inspection ENT: hearing grossly normal Neck: supple Respiratory/Chest: chest non-tender, lungs clear, normal breath sounds, no respiratory distress Cardiovascular: regular rate, rhythm, no edema, no murmur Abdomen/GI: soft, + tenderness, + pertinent finding (BS diminished ) Back: normal inspection Extremities/Musculoskelatal: normal inspection, no calf tenderness, no pedal edema Neurologic/Psych: alert, normal mood/affect, oriented x 3 Skin: normal color, warm/dry Hospital Course ABDOMINAL PAIN SECONDARY TO CONSTIPATION : Resolved Pt presented with diffuse abd pain; last BM 5 days ago S/P Digital disimpaction by ED physician- significant amount of stool was out ( per ER physician -size of soft balls x 3). Had 1 BM yesterday and today. -Work up - CT abd/pelvis + moderate to large amount well-formed stool seen within the colon and rectum. This is most pronounced at the rectum which is distended up to 10 cm. -Cont bowel regimen - Colace PO BID, Miralex 17 gram daily, Dulcolax 10 pr prn on discharge too UTI : (E coli) -Afebrile with mild leukocytosis -UA 4+ bacteria and + nitrites; urine cx-pending - IVF - discontinue as tolerating PO well. - IV Rocephin (Day 2)--> Change to PO cipro per c/s results - Pt chronically incontinent of urine; not complaining of urinary sxs CHRONIC ATRIAL FIBRILLATION : -EKG NSR -Not on anticoagulation secondary to fall risk -Cont ASA -Monitor CKD STAGE 3 -creatinine is around baseline at 1.4 -Avoid nephrotoxic agents when able ORTHOSTATIC HYPOTENSION -Cont midodrine -Fall precautions GERD -cont Pepcid DYSLIPIDEMIA -not on medication DEMENTIA Advanced- disoriented to place, time, person. Per , this is his baseline--- > recognizes his family members but not grand kids -Monitor DVT PROPHYLAXIS -high risk 2* afib -subq heparin CODE STATUS -DNR per discussion with at bedside upon admission DISPO -Observation status Ok to discharge today to [facility] . aware about todays discharge plan . Total time spent on discharge = 25 minutes This includes examination of the patient, discharge planning, medication reconciliation, and communication with other providers. Discharge Instructions Discharge Goals Goal(s): Decrease discomfort, Improve function Activity Recommendations Activity Limitations: resume your previous activity . Instructions / Follow-Up Instructions / Follow-Up MEDICATION CHANGES: 1. Bowel regimen as directed. Encourage PO fluids/Activity as tolerated to help with chronic constipation besides a good bowel regimen 2. Ciprofloxacin 500 mg PO BID for 5 more days to complete course of 7 days of antibiotics for UTI , E coli FOLLOW UP 1. Follow up with PCP in 1 week Current Hospital Diet Patient's current hospital diet: Regular Diet Discharge Diet Recommended Diet: AHA Diet (Heart Healthy), Low Sodium Diet (2gm Na) Pending Studies Studies pending at discharge: no Medical Emergencies . Who to Call and When: Medical Emergencies: If at any time you feel your situation is an emergency, please call 911 immediately. . Non-Emergent Contact Non-Emergency issues call your: Primary Care Provider . . "Provider Documentation" section prepared by Barbara Scott. VTE Core Measure Inpt VTE Proph given/why not?: Enoxaparin (Lovenox)SQ
[2016-05-19 11:01] VITALS: BP 162/75; PULSE 68; TEMP 36.6; O2SAT 96
[2016-05-19] MEDS: ASPIRIN 81 MG ECTAB PO SCH (11:13)
== END 2016-05-19 15:10 | DRG 690 ==
LOC: ENRESERVDT → ENRESERVTM → EDBD 11:13 → C.EDC 11:15 → C.MED 15:40
PROVIDERS: ADMIT Internal Medicine; ATTEND Internal Medicine
DX: N30.00 Acute cystitis without hematuria (principal); K59.01 Slow transit constipation; B96.20 Unspecified Escherichia coli [E. coli] as the cause of diseases classified elsewhere; R32 Unspecified urinary incontinence; I48.2 Chronic atrial fibrillation; N18.3 Chronic kidney disease, stage 3 (moderate); I95.1 Orthostatic hypotension; K21.9 Gastro-esophageal reflux disease without esophagitis; E78.5 Hyperlipidemia, unspecified; F03.90 Unspecified dementia, unspecified severity, without behavioral disturbance, psychotic disturbance, mood disturbance, and anxiety; Z66 Do not resuscitate; Z86.73 Personal history of transient ischemic attack (TIA), and cerebral infarction without residual deficits; Z79.02 Long term (current) use of antithrombotics/antiplatelets; Z79.82 Long term (current) use of aspirin; Z79.899 Other long term (current) drug therapy; Z88.1 Allergy status to other antibiotic agents; Z82.0 Family history of epilepsy and other diseases of the nervous system; Z82.49 Family history of ischemic heart disease and other diseases of the circulatory system; Z84.1 Family history of disorders of kidney and ureter; Z81.1 Family history of alcohol abuse and dependence

== ENCOUNTER 2017-02-28 17:29 | Inpatient (IN) | payer OTHER, BC ==
[~2017-02-28] VITALS: Ht 175.3 cm; Wt 73.0 kg
[~2017-02-28 17:29] MED LIST changes: -ASPI81TA28 PO; -CETI1SOL10 PO; +CETI1SYP22 PO; -CHOL100010 PO; +CHOL100041 PO; -CHOL4POW4 PO; +CPR500 PO; -FAMO1TAB47 PO; +FAMO20TA9 PO; -LACT PO; +LACT3000 PO; +LACTCAP3 PO; -PRMT25 PO; -SODI1000 PO; +SODIUM CHLORIDE PEG
--- NOTE | 2017-02-28 17:54 | EMERGENCY ROOM VISIT NOTE ---
History Report prepared by Karol: Ricardo Ly Under the Supervision of: Dr. Kwasi De Leon D.O. First contact with patient: 17:45 Chief Complaint: RECTAL BLEEDING Stated Complaint: BLEEDING OF RECTUM History of Present Illness The patient is an 86 year old male with dementia who presents to the Emergency Room with episodes of rectal bleeding that started this afternoon. Per the patient's , the patient had severe diarrhea this morning, then had another episode around 2 hours ago, and then another episode a half hour ago. The patient was noted to have blood and mucous in the stool of the last 2 episodes. The patient is not currently complaining of anything, and denies any pain, including abdominal pain, nausea, or vomiting. Per the patient's , the patient has had a runny nose recently, but that was thought to be due to allergies. The patient has not been on any recent antibiotics. The patient is living at [facility], and some of the residents have been having diarrhea. Source of History: patient, spouse/significant other Onset: This afternoon Position: other (rectum) Symptom Intensity: 2 episodes Quality: other (bleeding and mucous) Timing: other (episodes) Associated Symptoms: + diarrhea, No nausea, No vomiting, No abdominal pain Note: Denies any pain. Review of Systems See HPI for pertinent positives & negatives. A total of 10 systems reviewed and were otherwise negative. 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 (14) Orthostatic hypotension (15) S/P herniorrhaphy (16) Short-term memory loss (17) Skin cancer (18) Status post placement of implantable loop recorder Surgical Problems: (1) H/O splenectomy (2) Hx of cataract surgery (3) S/P cholecystectomy (4) Status post Mohs surgery Social History Problems: (1) Acute CVA (cerebrovascular accident) Family History FH: Alzheimers disease MOTHER FH: CAD (coronary artery disease) FATHER FHx: alcohol abuse FATHER Kidney disease FATHER Social History Smoking Status: Never Smoker Alcohol Use: none Drug Use: none Marital Status: Housing Status: [facility] Occupation Status: retired Current/Historical Medications Scheduled Aspirin (Aspirin Ec), 81 MG PO DAILY Calcium Carbonate-Cholecalcife (Oyster Shell Calcium + D), 1 TAB PO BIDM Cholecalciferol (D 1000), 1,000 INTER.UNIT PO DAILY Clopidogrel (Plavix), 75 MG PO DAILY Docusate Sodium (Colace), 1 CAP PO BID Famotidine (Pepcid), 20 MG PO DAILY Lactase (Lactaid), 9,000 UNITS PO TIDM Lactobacillus (Acidophilus), 1 CAP PO TID Midodrine (Midodrine HCl), 2.5 MG PO BID Polyethylene Glycol 3350 (Miralax), 17 GM PO DAILY [Tylenol 500MG/5ML], 3.25 ML PO DAILY Scheduled PRN Bisacodyl (Bisac-Evac), 1 SUPP NM DAILY PRN for Constipation Magnesium Hydroxide (Milk Of Magnesia), 30 ML PO DAILY PRN for Constipation Menthol-Zinc Oxide (Calmoseptine), 1 APPLN TOP Q6 PRN for IRRITATION [Tylenol 500MG/5ML], 6.5 ML PO Q4 PRN for Pain or Fever Allergies Coded Allergies: Aspartame (Verified Allergy, Unknown, UNK, 05/17/16) Cephalexin (Verified Allergy, Unknown, UNK, 05/17/16) Lactose (Verified Allergy, Unknown, 05/17/16) LACTOSE INTOLERANT Molds & Smuts (Verified Allergy, Unknown, UNKNOWN, 02/28/17) POLLEN (Verified Allergy, Unknown, UNKNOWN, 02/28/17) FROM GMG Yellow Dye (Verified Allergy, Unknown, UNK, 05/17/16) Donepezil (Verified Adverse Reaction, Unknown, sleepling too much, 08/15/15 ) gmg Rivastigmine (Verified Adverse Reaction, Unknown, drowsiness, 08/15/15) gmg Physical Exam Vital Signs Date Time Temp Pulse Resp B/P (MAP) Pulse Ox O2 Delivery O2 Flow Rate FiO2 02/28/17 20:52 66 16 146/88 97 Room Air 02/28/17 19:13 61 16 143/78 99 Room Air 02/28/17 18:17 63 02/28/17 17:39 36.7 71 18 148/84 95 Room Air Physical Exam GENERAL: Patient is awake, alert, and in no acute distress. Patient is resting comfortably and showing no signs of anxiety EYES: The conjunctivae are clear. The pupils are round and reactive. EARS, NOSE, MOUTH AND THROAT: The nose is without any evidence of any deformity. Mucous membranes are moist tongue is midline NECK: The neck is nontender and supple. RESPIRATORY: Normal respiratory effort is noted there is no evidence of wheezing rhonchi or rales CARDIOVASCULAR: Regular rate and rhythm noted there no murmurs rubs or gallops normal S1 normal S2 GASTROINTESTINAL: The abdomen is mildly distended but soft. Stool was grossly bloody and heme-positive. MUSCULOSKELETAL/EXTREMITIES: There is no evidence of gross deformity full range of motion is noted in the hips and shoulders SKIN: There is no obvious evidence of any rash. There are no petechiae, pallor or cyanosis noted. NEUROLOGIC: Patient is at baseline according to significant other. Medical Decision & Procedures ER Provider Diagnostic Interpretation: X-ray results as stated below per interpretation by me and the radiologist. CHEST 1 VW FRONT-NOT PORTABLE, KUB HISTORY: 86 years-old Male RECTAL BLEED acute rectal bleeding COMPARISON: CT abdomen and pelvis 05/17/2016, chest radiograph 08/15/2015 TECHNIQUE: PA view of the chest with KUB radiograph FINDINGS: Cardiac silhouette is again enlarged. Electronic device overlies the left chest, unchanged. Atherosclerosis of the aorta. No pneumothorax or pleural effusion. Subsegmental left basilar opacities suggest atelectasis. The patient is slightly rotated to the left. Degenerative changes are seen within the shoulders. Bowel gas pattern is nonobstructive. Police moderate stool volume is noted throughout the transverse colon and splenic flexure. Postoperative changes are seen about the pelvis. No pneumatosis or pneumoperitoneum identified. No urolith identified. Degenerative changes are seen within the lower lumbar spine and hips. IMPRESSION: 1. Subsegmental left basilar opacities favor atelectasis. 2. Moderate volume of formed stool throughout the transverse colon is noted with a nonobstructive bowel gas pattern. 3. No pneumatosis identified. The above report was generated using voice recognition software. It may contain grammatical, syntax or spelling errors. Electronically signed by: Cameron Álvarez M.D. 02/28/2017 7:05 PM Dictated Date/Time: 02/28/2017 7:01 PM CHEST 1 VW FRONT-NOT PORTABLE, KUB HISTORY: 86 years-old Male RECTAL BLEED acute rectal bleeding COMPARISON: CT abdomen and pelvis 05/17/2016, chest radiograph 08/15/2015 TECHNIQUE: PA view of the chest with KUB radiograph FINDINGS: Cardiac silhouette is again enlarged. Electronic device overlies the left chest, unchanged. Atherosclerosis of the aorta. No pneumothorax or pleural effusion. Subsegmental left basilar opacities suggest atelectasis. The patient is slightly rotated to the left. Degenerative changes are seen within the shoulders. Bowel gas pattern is nonobstructive. Police moderate stool volume is noted throughout the transverse colon and splenic flexure. Postoperative changes are seen about the pelvis. No pneumatosis or pneumoperitoneum identified. No urolith identified. Degenerative changes are seen within the lower lumbar spine and hips. IMPRESSION: 1. Subsegmental left basilar opacities favor atelectasis. 2. Moderate volume of formed stool throughout the transverse colon is noted with a nonobstructive bowel gas pattern. 3. No pneumatosis identified. The above report was generated using voice recognition software. It may contain grammatical, syntax or spelling errors. Electronically signed by: Cameron Álvarez M.D. 02/28/2017 7:05 PM Dictated Date/Time: 02/28/2017 7:01 PM Laboratory Results 02/28/17 18:04 Red Blood Count 4.34, Mean Corpuscular Volume 103.5, Mean Corpuscular Hemoglobin 34.8, Mean Corpuscular Hemoglobin Concent 33.6, Mean Platelet Volume 12.3, Neutrophils (%) (Auto) 66.5, Lymphocytes (%) (Auto) 16.5, Monocytes (%) ( Auto) 13.0, Eosinophils (%) (Auto) 3.6, Basophils (%) (Auto) 0.2, Neutrophils # (Auto) 8.19, Lymphocytes # (Auto) 2.04, Monocytes # (Auto) 1.60, Eosinophils # ( Auto) 0.44, Basophils # (Auto) 0.03 02/28/17 18:04 Test 02/28/17 18:04 White Blood Count 12.33 K/uL (4.8-10.8) Red Blood Count 4.34 M/uL (4.7-6.1) Hemoglobin 15.1 g/dL (14.0-18.0) Hematocrit 44.9 % (42-52) Mean Corpuscular Volume 103.5 fL (80-100) Mean Corpuscular Hemoglobin 34.8 pg (25-34) Mean Corpuscular Hemoglobin Concent 33.6 g/dl (32-36) Platelet Count 271 K/uL (130-400) Mean Platelet Volume 12.3 fL (7.4-10.4) Neutrophils (%) (Auto) 66.5 % Lymphocytes (%) (Auto) 16.5 % Monocytes (%) (Auto) 13.0 % Eosinophils (%) (Auto) 3.6 % Basophils (%) (Auto) 0.2 % Neutrophils # (Auto) 8.19 K/uL (1.4-6.5) Lymphocytes # (Auto) 2.04 K/uL (1.2-3.4) Monocytes # (Auto) 1.60 K/uL (0.11-0.59) Eosinophils # (Auto) 0.44 K/uL (0-0.5) Basophils # (Auto) 0.03 K/uL (0-0.2) RDW Standard Deviation 53.1 fL (36.4-46.3) RDW Coefficient of Variation 13.9 % (11.5-14.5) Immature Granulocyte % (Auto) 0.2 % Immature Granulocyte # (Auto) 0.03 K/uL (0.00-0.02) Nucleated RBC Absolute Count (auto) 0.06 K/uL (0-0) Nucleated Red Blood Cells % 0.5 % Prothrombin Time 10.7 SECONDS (9.0-12.0) Prothromb Time International Ratio 1.0 (0.9-1.1) Activated Partial Thromboplast Time 24.9 SECONDS (21.0-31.0) Partial Thromboplastin Ratio 1.0 Anion Gap 5.0 mmol/L (3-11) Estimated GFR () 46.9 Estimated GFR (Non- 40.5 BUN/Creatinine Ratio 19.7 (10-20) Calcium Level 9.3 mg/dl (8.5-10.1) Total Bilirubin 0.3 mg/dl (0.2-1) Direct Bilirubin mg/dl (0-0.2) Aspartate Amino Transf (AST/SGOT) 20 U/L (15-37) Alanine Aminotransferase (ALT/SGPT) 24 U/L (12-78) Alkaline Phosphatase 84 U/L (45-117) Total Protein 7.7 gm/dl (6.4-8.2) Albumin 3.4 gm/dl (3.4-5.0) Lipase 584 U/L (73-393) Chemistry Specimen Hemolysis Laboratory results per my review. ED Course 174: The patient was evaluated in room B9. A complete history and physical examination were performed. 2014: Upon reevaluation, the patient is resting. I discussed results and treatment plan with him. He verbalizes agreement and understanding. The patient will be evaluated for further management and care. 2016: I discussed the patient with Dr. Ryan Smith technical marketing engineer. He will evaluate the patient for further treatment. Medical Decision Differential diagnosis: Etiologies such as diverticulosis, AVM, coagulopathy, colitis, inflammatory bowel disease, malignancy, Viviana-Anderson tear, esophagitis, peptic ulcer disease , variceal bleed, gastritis, epistaxis, fissure, hemorrhoids, as well as others were entertained. Nursing notes reviewed. The patient is an 86-year-old male who presented to the emergency department with his significant other for an evaluation of lower GI bleeding. The patient has been having mucus stool with blood noted. The patient's physical exam was not consistent with an acute surgical abdomen. I discussed the patient's laboratory and radiographic studies with him and his family members. He currently takes Plavix. For this reason I do feel he may be higher risk. I recommended stool studies be obtained but the patient was unable to produce a specimen while he was in the emergency department. Given his comorbidities I discussed his case with the on-call [facility] hospitalist group. They have agreed to evaluate the patient in the emergency department for further management and disposition. Medication Reconcilliation Current Medication List: was personally reviewed by me Blood Pressure Screening Patient's blood pressure: Elevated blood pressure Consults Time Called: 2009 Consulting Physician: Dr. Ryan Smith technical marketing engineer Returned Call: 2015 I discussed the patient with Dr. Ryan Smith technical marketing engineer. He will evaluate the patient for further treatment. Impression Primary Impression: Lower GI bleed Additional Impression: Elevated WBC count Scribe Attestation The scribe's documentation has been prepared under my direction and personally reviewed by me in its entirety. I confirm that the note above accurately reflects all work, treatment, procedures, and medical decision making performed by me. Departure Information Dispostion Being Evaluated By Hospitalist Referrals Rober Ramirez D.O. (PCP) Patient Instructions My [facility] Problem Qualifiers Additional Impression: Elevated WBC count Leukocytosis type: unspecified Qualified Codes: D72.829 - Elevated white blood cell count, unspecified
[2017-02-28 18:15] LABS: BASO % 0.2 %; BASO ABS # 0.03 K/uL (0-0.2); COMPLETE YES; EOS % 3.6 %; HEMATOCRIT 44.9 % (42-52); IG% 0.2 %; LYMPH % 16.5 %; LYMPH ABS # 2.04 K/uL (1.2-3.4); MEAN CELL VOLUME 103.5 fL (80-100); MEAN CORPUSCULAR HEMOGLOBIN 34.8 pg (25-34); MEAN CORPUSCULAR HGB CONC 33.6 g/dl (32-36); MEAN PLATELET VOLUME 12.3 fL (7.4-10.4); NEUT % 66.5 %; PLATELET COUNT 271 K/uL (130-400); RED BLOOD COUNT 4.34 M/uL (4.7-6.1); WHITE BLOOD COUNT 12.33 K/uL (4.8-10.8)
[2017-02-28] MEDS ORDERED: MENTOIN TOP (18:17)
[2017-02-28 18:23] LABS: PROTHROMBIN TIME (PATIENT) 10.7 SECONDS (9.0-12.0)
[2017-02-28] MEDS ORDERED: CLOP1TAB15 PO (18:33)
[2017-02-28 18:35] LABS: ALKALINE PHOSPHATASE 84 U/L (45-117); ALT/SGPT 24 U/L (12-78); AST/SGOT 20 U/L (15-37); BLOOD UREA NITROGEN 31 mg/dl (7-18); BUN/CREATININE RATIO 19.7 (10-20); CALCIUM 9.3 mg/dl (8.5-10.1); CARBON DIOXIDE 30 mmol/L (21-32); CHLORIDE 99 mmol/L (98-107); CREATININE 1.55 mg/dl (0.60-1.40); GLUCOSE 100 mg/dl (70-99); POTASSIUM 4.5 mmol/L (3.5-5.1); SODIUM 134 mmol/L (136-145)
[2017-02-28] MEDS ORDERED: ASPI81TA28 PO (18:46)
--- NOTE | 2017-02-28 19:06 | DIAGNOSTIC IMAGING REPORT ---
CHEST 1 VW FRONT-NOT PORTABLE, KUB HISTORY: 86 years-old Male RECTAL BLEED acute rectal bleeding COMPARISON: CT abdomen and pelvis 05/17/2016, chest radiograph 08/15/2015 TECHNIQUE: PA view of the chest with KUB radiograph FINDINGS: Cardiac silhouette is again enlarged. Electronic device overlies the left chest, unchanged. Atherosclerosis of the aorta. No pneumothorax or pleural effusion. Subsegmental left basilar opacities suggest atelectasis. The patient is slightly rotated to the left. Degenerative changes are seen within the shoulders. Bowel gas pattern is nonobstructive. Police moderate stool volume is noted throughout the transverse colon and splenic flexure. Postoperative changes are seen about the pelvis. No pneumatosis or pneumoperitoneum identified. No urolith identified. Degenerative changes are seen within the lower lumbar spine and hips. IMPRESSION: 1. Subsegmental left basilar opacities favor atelectasis. 2. Moderate volume of formed stool throughout the transverse colon is noted with a nonobstructive bowel gas pattern. 3. No pneumatosis identified. The above report was generated using voice recognition software. It may contain grammatical, syntax or spelling errors. Electronically signed by: Cameron Álvarez M.D. 02/28/2017 7:05 PM Dictated Date/Time: 02/28/2017 7:01 PM
[2017-02-28] MEDS ORDERED: TYLENOL PO ×2 (19:22)
[2017-02-28] MEDS ORDERED: MAGNESIUM HYDROXIDE SUSP 30 ML UDC PO PRN (21:00)
[2017-02-28] MEDS ORDERED: ACETAMINOPHEN 325 MG TAB PO PRN (21:00)
--- NOTE | 2017-02-28 21:17 | History and Physical ---
History & Physical Date & Time of Service: Feb 28, 2017 at 21:05 Chief Complaint: Bleeding Of Rectum Primary Care Physician: Rober Ramirez D.O. History of Present Illness Source: patient, family, clinic records, hospital records This is an 86 year old male with a PMH of paroxysmal atrial fibrillation, dementia, hx. of multiple CVAs on Plavix, CKD stage 3, HLD - presents with about three episodes of diarrhea with streaks of blood. Most of the history is obtained by the patient's and son who are at bedside. Pt. is pleasantly demented. As per family, he developed diarrhea early in the morning, in the afternoon and once prior to arrival. All episodes of diarrhea had dark streaks of blood associated with it. As per records, other patients at [facility] dementia unit have had diarrhea. No recent change in medications. No other change in health. Past Medical/Surgical History Medical Problems: (1) Atrial fibrillation Permanent Comment: paroxysmal, anticoagulated on Coumadin Status: Chronic (2) Calculus Of Kidney Permanent Comment: s/p stone extraction Status: Resolved (3) carcinoma of the appendix Status: Resolved (4) Carpal tunnel syndrome Status: Chronic (5) CVA (cerebral infarction) Status: Chronic (6) Dementia Status: Chronic (7) GERD (gastroesophageal reflux disease) Status: Chronic (8) Hyperlipidemia Nec/Nos Status: Chronic (9) Hypokalemia Status: Chronic (10) Lactose intolerance Status: Chronic (11) Malign Neopl Prostate Permanent Comment: s/p radical prostate removal Status: Resolved (12) Neuropathy Status: Chronic (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 Status: Chronic (14) Orthostatic hypotension Status: Chronic (15) S/P herniorrhaphy Status: Resolved (16) Short-term memory loss Status: Chronic (17) 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 Status: Resolved (18) Status post placement of implantable loop recorder Status: Chronic Surgical Problems: (1) H/O splenectomy Status: Chronic (2) Hx of cataract surgery Status: Chronic (3) S/P cholecystectomy Status: Chronic (4) Status post Mohs surgery Status: Chronic Family History FH: Alzheimers disease MOTHER FH: CAD (coronary artery disease) FATHER FHx: alcohol abuse FATHER Kidney disease FATHER Social History Smoking Status: Never Smoker Drug Use: none Marital Status: Housing status: other Occupational Status: retired Immunizations History of Influenza Vaccine: Yes Influenza Vaccine Date: Dec 28, 2010 History of Tetanus Vaccine?: Yes History of Pneumococcal: Yes History of Hepatitis B Vaccine: No Multi-Drug Resistant Organisms History of MDRO: No Allergies Coded Allergies: Aspartame (Verified Allergy, Unknown, UNK, 05/17/16) Cephalexin (Verified Allergy, Unknown, UNK, 05/17/16) Lactose (Verified Allergy, Unknown, 05/17/16) LACTOSE INTOLERANT Molds & Smuts (Verified Allergy, Unknown, UNKNOWN, 02/28/17) POLLEN (Verified Allergy, Unknown, UNKNOWN, 02/28/17) FROM GMG Yellow Dye (Verified Allergy, Unknown, UNK, 05/17/16) Donepezil (Verified Adverse Reaction, Unknown, sleepling too much, 08/15/15 ) gmg Rivastigmine (Verified Adverse Reaction, Unknown, drowsiness, 08/15/15) gmg Home Medications Scheduled Aspirin (Aspirin Ec), 81 MG PO DAILY Calcium Carbonate-Cholecalcife (Oyster Shell Calcium + D), 1 TAB PO BIDM Cholecalciferol (D 1000), 1,000 INTER.UNIT PO DAILY Clopidogrel (Plavix), 75 MG PO DAILY Docusate Sodium (Colace), 1 CAP PO BID Famotidine (Pepcid), 20 MG PO DAILY Lactase (Lactaid), 9,000 UNITS PO TIDM Lactobacillus (Acidophilus), 1 CAP PO TID Midodrine (Midodrine HCl), 2.5 MG PO BID Polyethylene Glycol 3350 (Miralax), 17 GM PO DAILY [Tylenol 500MG/5ML], 3.25 ML PO DAILY Scheduled PRN Bisacodyl (Bisac-Evac), 1 SUPP DE DAILY PRN for Constipation Magnesium Hydroxide (Milk Of Magnesia), 30 ML PO DAILY PRN for Constipation Menthol-Zinc Oxide (Calmoseptine), 1 APPLN TOP Q6 PRN for IRRITATION [Tylenol 500MG/5ML], 6.5 ML PO Q4 PRN for Pain or Fever Review of Systems Cannot obtain due to patient's mental status Physical Exam Vital Signs Date Time Temp Pulse Resp B/P (MAP) Pulse Ox O2 Delivery O2 Flow Rate FiO2 02/28/17 20:52 66 16 146/88 97 Room Air 02/28/17 19:13 61 16 143/78 99 Room Air 02/28/17 18:17 63 02/28/17 17:39 36.7 71 18 148/84 95 Room Air General Appearance: no apparent distress, + pertinent finding (pleasantly demented; hums to himself at baseline) Head: normocephalic, atraumatic Eyes: normal inspection ENT: hearing grossly normal Neck: supple Respiratory/Chest: chest non-tender, lungs clear, normal breath sounds, no respiratory distress, no accessory muscle use Cardiovascular: regular rate, rhythm, no edema, no murmur Abdomen/GI: normal bowel sounds, non tender, soft Extremities/Musculoskelatal: normal inspection, no calf tenderness, normal capillary refill, no pedal edema, normal range of motion Neurologic/Psych: no motor/sensory deficits, alert, + pertinent finding (+ dementia) Skin: normal color Lymphatic: no adenopathy Diagnostics Laboratory Results Results Past 24 Hours Test 02/28/17 18:04 Range/Units White Blood Count 12.33 4.8-10.8 K/uL Red Blood Count 4.34 4.7-6.1 M/uL Hemoglobin 15.1 14.0-18.0 g/dL Hematocrit 44.9 42-52 % Mean Corpuscular Volume 103.5 80-100 fL Mean Corpuscular Hemoglobin 34.8 25-34 pg Mean Corpuscular Hemoglobin Concent 33.6 32-36 g/dl Platelet Count 271 130-400 K/uL Mean Platelet Volume 12.3 7.4-10.4 fL Neutrophils (%) (Auto) 66.5 % Lymphocytes (%) (Auto) 16.5 % Monocytes (%) (Auto) 13.0 % Eosinophils (%) (Auto) 3.6 % Basophils (%) (Auto) 0.2 % Neutrophils # (Auto) 8.19 1.4-6.5 K/uL Lymphocytes # (Auto) 2.04 1.2-3.4 K/uL Monocytes # (Auto) 1.60 0.11-0.59 K/uL Eosinophils # (Auto) 0.44 0-0.5 K/uL Basophils # (Auto) 0.03 0-0.2 K/uL RDW Standard Deviation 53.1 36.4-46.3 fL RDW Coefficient of Variation 13.9 11.5-14.5 % Immature Granulocyte % (Auto) 0.2 % Immature Granulocyte # (Auto) 0.03 0.00-0.02 K/uL Nucleated RBC Absolute Count (auto) 0.06 0-0 K/uL Nucleated Red Blood Cells % 0.5 % Prothrombin Time 10.7 9.0-12.0 SECONDS Prothromb Time International Ratio 1.0 0.9-1.1 Activated Partial Thromboplast Time 24.9 21.0-31.0 SECONDS Partial Thromboplastin Ratio 1.0 Sodium Level 134 136-145 mmol/L Potassium Level 4.5 3.5-5.1 mmol/L Chloride Level 99 98-107 mmol/L Carbon Dioxide Level 30 21-32 mmol/L Anion Gap 5.0 3-11 mmol/L Blood Urea Nitrogen 31 7-18 mg/dl Creatinine 1.55 0.60-1.40 mg/dl Estimated GFR () 46.9 Estimated GFR (Non- 40.5 BUN/Creatinine Ratio 19.7 10-20 Random Glucose 100 70-99 mg/dl Calcium Level 9.3 8.5-10.1 mg/dl Total Bilirubin 0.3 0.2-1 mg/dl Direct Bilirubin 0-0.2 mg/dl Aspartate Amino Transf (AST/SGOT) 20 15-37 U/L Alanine Aminotransferase (ALT/SGPT) 24 12-78 U/L Alkaline Phosphatase 84 45-117 U/L Total Protein 7.7 6.4-8.2 gm/dl Albumin 3.4 3.4-5.0 gm/dl Lipase 584 73-393 U/L Chemistry Specimen Hemolysis Diagnostic Radiology CHEST 1 VW FRONT-NOT PORTABLE, KUB HISTORY: 86 years-old Male RECTAL BLEED acute rectal bleeding COMPARISON: CT abdomen and pelvis 05/17/2016, chest radiograph 08/15/2015 TECHNIQUE: PA view of the chest with KUB radiograph FINDINGS: Cardiac silhouette is again enlarged. Electronic device overlies the left chest, unchanged. Atherosclerosis of the aorta. No pneumothorax or pleural effusion. Subsegmental left basilar opacities suggest atelectasis. The patient is slightly rotated to the left. Degenerative changes are seen within the shoulders. Bowel gas pattern is nonobstructive. Police moderate stool volume is noted throughout the transverse colon and splenic flexure. Postoperative changes are seen about the pelvis. No pneumatosis or pneumoperitoneum identified. No urolith identified. Degenerative changes are seen within the lower lumbar spine and hips. IMPRESSION: 1. Subsegmental left basilar opacities favor atelectasis. 2. Moderate volume of formed stool throughout the transverse colon is noted with a nonobstructive bowel gas pattern. 3. No pneumatosis identified. Impression Assessment and Plan This is an 86 year old male with a PMH of paroxysmal atrial fibrillation, dementia, hx. of multiple CVAs on Plavix, CKD stage 3, HLD - presents with about three episodes of diarrhea with streaks of blood Likely Viral Gastroenteritis will r/o C. diff, check stool culture monitor H/H due to streaks of blood holding Plavix and aspirin for now should restart antiplatelets if possible due to multiple CVAs in the past IVFs and clear liquids (liquids with straw) advance diet when able NETO superimposed on CKD stage 3 likely secondary to diarrhea creatinine bumped to 1.5, baseline is closer to 1.2 will give IVFs recheck creat in AM and avoid nephrotoxic agents when able Paroxysmal A. Fib currently in NSR rate is controlled DVT ppx SCDs DNR VTE Prophylaxis VTE Risk Assessment Done? Y/N: Yes Risk Level: High
[2017-02-28] MEDS ORDERED: PRMT25 PO (22:38)
[2017-02-28 22:50] VITALS: BP 150/78; PULSE 95; TEMP 36.4; O2SAT 97
[2017-02-28] MEDS: SODIUM CHLORIDE 0.9% 1000ML 1,000 ML IV SCH (23:54)
[2017-03-01 01:08] VITALS: BP 150/78; PULSE 95; TEMP 36.4; O2SAT 98; Ht 175.3 cm; Wt 73.0 kg
[2017-03-01] MEDS: PANTOprazole SOD 40 MG TAB PO SCH ×3 (01:57→21:39)
[2017-03-01 02:51] LABS: URINE APPEARANCE CLEAR (CLEAR); URINE BILIRUBIN NEG (NEG); URINE COLOR YELLOW; URINE EPITHELIAL CELL AUTO >30 /lpf (0-5); URINE NITRITE NEG (NEG); URINE SPECIFIC GRAVITY 1.022 (1.000-1.030); UROBILINOGEN NEG (NEG)
[2017-03-01 03:10] LABS: MANUAL MICROSCOPIC REQUIRED? NO; REVIEW REQ? YES
[2017-03-01] MEDS: SODIUM CHLORIDE 0.9% 1000ML 1,000 ML IV SCH ×2 (06:25→19:08)
[2017-03-01 07:16] VITALS: BP 165/94; TEMP 36.2; O2SAT 97
[2017-03-01 07:18] LABS: BASO % 0.2 %; BASO ABS # 0.03 K/uL (0-0.2); COMPLETE YES; EOS % 3.3 %; HEMATOCRIT 42.8 % (42-52); IG% 0.3 %; LYMPH % 14.2 %; LYMPH ABS # 1.87 K/uL (1.2-3.4); MEAN CELL VOLUME 102.9 fL (80-100); MEAN CORPUSCULAR HEMOGLOBIN 34.4 pg (25-34); MEAN CORPUSCULAR HGB CONC 33.4 g/dl (32-36); MEAN PLATELET VOLUME 12.9 fL (7.4-10.4); MONO % 15.2 %; NEUT % 66.8 %; PLATELET COUNT 264 K/uL (130-400); RED BLOOD COUNT 4.16 M/uL (4.7-6.1); WHITE BLOOD COUNT 13.16 K/uL (4.8-10.8)
[2017-03-01 07:42] LABS: BUN/CREATININE RATIO 20.2 (10-20); CREATININE 1.24 mg/dl (0.60-1.40); MAGNESIUM 1.9 mg/dl (1.8-2.4); POTASSIUM 3.9 mmol/L (3.5-5.1)
[2017-03-01 08:00] VITALS: O2SAT 97
[2017-03-01] MEDS: LACTOBACILLUS ACIDOPHILUS (FLORANEX) TAB PO SCH ×3 (08:19→17:36)
[2017-03-01] MEDS: LACTASE 3000 UNIT TAB PO SCH ×3 (08:21→17:36)
[2017-03-01] MEDS: MIDODRINE 2.5 MG TAB PO SCH ×2 (08:22→17:37)
[2017-03-01] MEDS: FAMOTIDINE 20 MG TAB PO SCH (08:22)
[2017-03-01] MEDS ORDERED: NURSING VERBAL MED ORDER ONE (12:30)
[2017-03-01 13:37] VITALS: BP 163/72
--- NOTE | 2017-03-01 14:16 | Progress Note ---
Medicine Progress Note Date & Time of Visit: Mar 01, 2017 at 13:58. Subjective Pt was seen and examined Lying in bed with no distress with at bedside Pt was walking today with physical therapy As per nurse he had a very small dark brown BM this morning denies any symptoms Objective Last 8 Hrs Date Time Temp Pulse Resp B/P (MAP) Pulse Ox O2 Delivery O2 Flow Rate FiO2 03/01/17 13:37 163/72 (102) 03/01/17 08:00 97 Room Air 03/01/17 07:16 36.2 16 165/94 (117) 97 Room Air Physical Exam: General- No acute distress Head- atraumatic Eyes- PERRL, EOMI ENT- oropharynx clear Neck- supple, no JVD Lungs- clear to auscultation Heart- regular rhythm Abdomen- normal bowel sounds, soft Extremities- no pretibial edema, no calf tenderness Neuro- alert, demented PERRL, EOMI; no facial palsy; no dysarthria Skin- warm & dry Laboratory Results: Last 24 Hours Test 02/28/17 18:04 03/01/17 01:50 03/01/17 06:47 White Blood Count 12.33 K/uL 13.16 K/uL Red Blood Count 4.34 M/uL 4.16 M/uL Hemoglobin 15.1 g/dL 14.3 g/dL Hematocrit 44.9 % 42.8 % Mean Corpuscular Volume 103.5 fL 102.9 fL Mean Corpuscular Hemoglobin 34.8 pg 34.4 pg Mean Corpuscular Hemoglobin Concent 33.6 g/dl 33.4 g/dl Platelet Count 271 K/uL 264 K/uL Mean Platelet Volume 12.3 fL 12.9 fL Neutrophils (%) (Auto) 66.5 % 66.8 % Lymphocytes (%) (Auto) 16.5 % 14.2 % Monocytes (%) (Auto) 13.0 % 15.2 % Eosinophils (%) (Auto) 3.6 % 3.3 % Basophils (%) (Auto) 0.2 % 0.2 % Neutrophils # (Auto) 8.19 K/uL 8.79 K/uL Lymphocytes # (Auto) 2.04 K/uL 1.87 K/uL Monocytes # (Auto) 1.60 K/uL 2.00 K/uL Eosinophils # (Auto) 0.44 K/uL 0.43 K/uL Basophils # (Auto) 0.03 K/uL 0.03 K/uL RDW Standard Deviation 53.1 fL 51.8 fL RDW Coefficient of Variation 13.9 % 13.8 % Immature Granulocyte % (Auto) 0.2 % 0.3 % Immature Granulocyte # (Auto) 0.03 K/uL 0.04 K/uL Nucleated RBC Absolute Count (auto) 0.06 K/uL 0.02 K/uL Nucleated Red Blood Cells % 0.5 % 0.1 % Prothrombin Time 10.7 SECONDS Prothromb Time International Ratio 1.0 Activated Partial Thromboplast Time 24.9 SECONDS Partial Thromboplastin Ratio 1.0 Sodium Level 134 mmol/L 135 mmol/L Potassium Level 4.5 mmol/L 3.9 mmol/L Chloride Level 99 mmol/L 102 mmol/L Carbon Dioxide Level 30 mmol/L 29 mmol/L Anion Gap 5.0 mmol/L 4.0 mmol/L Blood Urea Nitrogen 31 mg/dl 25 mg/dl Creatinine 1.55 mg/dl 1.24 mg/dl Estimated GFR () 46.9 61.5 Estimated GFR (Non- 40.5 53.1 BUN/Creatinine Ratio 19.7 20.2 Random Glucose 100 mg/dl 96 mg/dl Calcium Level 9.3 mg/dl 9.0 mg/dl Total Bilirubin 0.3 mg/dl Direct Bilirubin mg/dl Aspartate Amino Transf (AST/SGOT) 20 U/L Alanine Aminotransferase (ALT/SGPT) 24 U/L Alkaline Phosphatase 84 U/L Total Protein 7.7 gm/dl Albumin 3.4 gm/dl Lipase 584 U/L 268 U/L Chemistry Specimen Hemolysis Urine Color YELLOW Urine Appearance CLEAR Urine pH 7.0 Urine Specific Percy 1.022 Urine Protein NEG Urine Glucose (UA) NEG Urine Ketones NEG Urine Occult Blood 2+ Urine Nitrite NEG Urine Bilirubin NEG Urine Urobilinogen NEG Urine Leukocyte Esterase TRACE Urine WBC (Auto) 1-5 /hpf Urine RBC (Auto) >30 /hpf Urine Hyaline Casts (Auto) 5-10 /lpf Urine Epithelial Cells (Auto) >30 /lpf Urine Bacteria (Auto) NEG Urine Renal Epithelial Cells /lpf Est Creatinine Clear Calc Drug Dose 44.4 ml/min Magnesium Level 1.9 mg/dl Date/Time Source Procedure Growth Status 02/28/17 23:30 Nasal MRSA DNA Surveillance Screen - Final Specimen Negative for MRSA by DNA Probe Complete Assessment & Plan Diarrhea associated with dark stools Diarrhea my be related to viral gastroenteritis KUB showd Moderate volume of formed stool throughout the transverse colon is noted with a nonobstructive bowel gas pattern. 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 Afebrile Continue monitor CBC Elevated Lipase Possible related to dehydration/ and recent GI symptoms Resolved Paroxysmal A. Fib currently in NSR rate is controlled Aspirin on hold for possible GI bleed HX CVA Will resume plavix and aspirin in am if bleeding stable Dementia stable DVT ppx SCDs (Due for possible GI bleed) CODE STATUS DNR Current Inpatient Medications: Current Inpatient Medications Medications (Trade) Dose Ordered Sig/Jenny Route Start Time Stop Time Status Last Admin Dose Admin Acetaminophen (Tylenol Tab) 650 mg Q4H PRN PO 02/28/17 21:00 03/30/17 20:59 Famotidine (Pepcid Tab) 20 mg DAILY PO 03/01/17 09:00 03/31/17 08:59 03/01/17 08:22 20 MG Lactase (Lactaid Tab) 9,000 units TIDM PO 03/01/17 08:00 03/31/17 07:59 03/01/17 11:57 9,000 UNITS Magnesium Hydroxide (Milk Of Magnesia Susp) 30 ml DAILY PRN PO 02/28/17 21:00 03/30/17 20:59 Midodrine (Proamatine Tab) 2.5 mg BID17 PO 03/01/17 09:00 03/31/17 08:59 Lactobacillus Acidophilus (Floranex Tab) 4 tab TIDM PO 03/01/17 08:00 03/31/17 07:59 03/01/17 11:57 4 TAB Pantoprazole Sodium (Protonix Tab) 40 mg BID PO 02/28/17 21:00 03/30/17 20:59 03/01/17 08:23 40 MG Sodium Chloride 1,000 ml @ 60 mls/hr [id number] IV 02/28/17 21:15 03/30/17 21:14 03/01/17 06:25 100 MLS/HR
[2017-03-01 15:30] VITALS: BP 153/65; PULSE 68; TEMP 36.7; O2SAT 99
[2017-03-01 22:34] VITALS: BP 181/80; PULSE 74; TEMP 37.2; O2SAT 94
[2017-03-02] VITALS: O2SAT 97
[2017-03-02 04:00] VITALS: O2SAT 97
[2017-03-02 05:51] LABS: HEMATOCRIT 42.4 % (42-52); MEAN CELL VOLUME 102.4 fL (80-100); MEAN CORPUSCULAR HEMOGLOBIN 34.3 pg (25-34); MEAN CORPUSCULAR HGB CONC 33.5 g/dl (32-36); MEAN PLATELET VOLUME 12.6 fL (7.4-10.4); PLATELET COUNT 256 K/uL (130-400); RED BLOOD COUNT 4.14 M/uL (4.7-6.1); WHITE BLOOD COUNT 12.39 K/uL (4.8-10.8)
[2017-03-02 06:28] LABS: BUN/CREATININE RATIO 11.6 (10-20); CALCIUM 8.7 mg/dl (8.5-10.1); CREATININE 1.1 mg/dl (0.60-1.40); POTASSIUM 3.7 mmol/L (3.5-5.1)
[2017-03-02 07:11] VITALS: BP 173/94; PULSE 76; TEMP 36.3; O2SAT 97
[2017-03-02] MEDS: LACTASE 3000 UNIT TAB PO SCH ×3 (09:07→17:06)
[2017-03-02] MEDS: LACTOBACILLUS ACIDOPHILUS (FLORANEX) TAB PO SCH ×3 (09:07→17:05)
[2017-03-02] MEDS: FAMOTIDINE 20 MG TAB PO SCH (09:07)
[2017-03-02] MEDS: PANTOprazole SOD 40 MG TAB PO SCH ×2 (09:07→20:57)
[2017-03-02] MEDS: MIDODRINE 2.5 MG TAB PO SCH ×2 (09:07→17:06)
--- NOTE | 2017-03-02 15:27 | Progress Note ---
Internal Med Progress Note Date of Service: Mar 02, 2017. Provider Documentation: SUBJECTIVE: baseline dementia , lying comfortably in bed tolerated solid diet well , no nausea complains of pain in mid abdomen , had 1-2 soft bowel movement this AM still has streaks of blood as per OBJECTIVE: Vital Signs-as noted below Exam: General-elderly gentleman , well appearing , no apparent sign of distress Eyes-sclera non icteric , PERRLA/EOMI ENT-moist oral mucosa , normal oropharynx Neck-no JVD Lungs-clear to auscultate , no wheeze or rales Heart-regular S1/S2 , no JVD , no lower ext edema Abdomen-soft, mid line healed surgical scar , bowel sound active , no pain or tenderness elicited while palpation Extremities-no rash , deformity , no open wounds Neuro-baseline dementia , oriented to person only , no focal neurological deficit Lab data as noted below. ASSESSMENT & PLAN: BLOOD IN STOOL sent form [facility] -for diarrhea /dark stool Concern for chronic constipation -leading to overflow diarrhea KUB showed Moderate volume of formed stool throughout the transverse colon is noted with a nonobstructive bowel gas pattern. -streaks of blood is stool could be possibly due to Hemorrhoidal bleeding associated with straining with constipation ordered for increased bowel regimen -Miralax BID, colace BID H&H remains stable 14.3-> 14.2 . 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 Afebrile diarrhea has resolved , stool culture ordered -sample could not be obtained UA + leukocyte esterase ordered for urine culture Elevated Lipase Possible related to dehydration/ and recent GI symptoms Resolved-normal lipase level tolerating diet D/c IVF Paroxysmal A. 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; Chronic Na at approx baseline 135 D/C IV NSS Dementia stable DVT ppx SCDs (Due for possible GI bleed) DNR/DNI DISPOSITION resident at [facility] PT/OT margy springer , at baseline functional status recommend to return back to [facility] will provide transport for return possible discharge in 1-2 days if no further episode of blood in stool Medicine follow up with Dr Ramirez Vital Signs: Date Time Temp Pulse Resp B/P (MAP) Pulse Ox O2 Delivery O2 Flow Rate FiO2 03/02/17 09:00 Room Air 03/02/17 07:11 36.3 76 18 173/94 (120) 97 Room Air 03/02/17 04:00 97 Room Air 03/02/17 00:00 97 Room Air 03/01/17 22:34 37.2 74 20 181/80 (113) 94 Room Air Lab Results: Results Past 24 Hours Test 03/02/17 05:18 Range/Units White Blood Count 12.39 4.8-10.8 K/uL Red Blood Count 4.14 4.7-6.1 M/uL Hemoglobin 14.2 14.0-18.0 g/dL Hematocrit 42.4 42-52 % Mean Corpuscular Volume 102.4 80-100 fL Mean Corpuscular Hemoglobin 34.3 25-34 pg Mean Corpuscular Hemoglobin Concent 33.5 32-36 g/dl RDW Standard Deviation 51.8 36.4-46.3 fL RDW Coefficient of Variation 13.8 11.5-14.5 % Platelet Count 256 130-400 K/uL Mean Platelet Volume 12.6 7.4-10.4 fL Sodium Level 133 136-145 mmol/L Potassium Level 3.7 3.5-5.1 mmol/L Chloride Level 99 98-107 mmol/L Carbon Dioxide Level 29 21-32 mmol/L Anion Gap 5.0 3-11 mmol/L Blood Urea Nitrogen 13 7-18 mg/dl Creatinine 1.10 0.60-1.40 mg/dl Est Creatinine Clear Calc Drug Dose 50.0 ml/min Estimated GFR () 71.1 Estimated GFR (Non- 61.3 BUN/Creatinine Ratio 11.6 10-20 Random Glucose 95 70-99 mg/dl Calcium Level 8.7 8.5-10.1 mg/dl
[2017-03-02] MEDS ORDERED: HYDR2.5C37 TOP (15:31)
[2017-03-02 15:32] VITALS: BP 133/71; PULSE 63; TEMP 36.8; O2SAT 96
--- NOTE | 2017-03-02 15:53 | Discharge Instructions ---
Discharge Instructions Date of Service Mar 02, 2017. Admission Reason for Admission: Lower Gi Bleed Discharge Discharge Diagnosis / Problem: SEVERE CONSTIPATION -OVERFLOW DIARRHEA Discharge Goals Goal(s): Decrease discomfort, Increase independence, Improve disease control, Diagnostic testing, Therapeutic intervention Activity Recommendations Activity Limitations: resume your previous activity . Instructions / Follow-Up Instructions / Follow-Up HOSPITAL FOLLOW UP : 03/09/2017 11:00 AM Rober Ramirez DO General Internal Medicine [facility] IT IS VERY IMPORTANT TO PREVENT CONSTIPATION IN SEVERE CASE IT MAY LEAD TO HOSPITAL ADMISSION ADD PLENTY OF FIBERS , ADEQUATE FLUIDS TO DIET INCREASE MIRALAX TO TWICE DAILY , PLEASE ADD ADDITIONAL STOOL SOFTENER NEEDED TO HAVE ONE BOWEL MOVEMENT DAILY DO NOT TAKE PLAVIX CONTINUE ASPIRIN 81 MG DAILY WITH MEALS AVOID NAPROXEN . ALEVE, MOTRIN , ADVIL . IBUPROFEN, HIGH DOSE ASPIRIN -WHICH CAN CAUSE IRRITATION IN STOMACH -MAY LEAD TO BLEEDING AND WORSENING OF KIDNEY FUNCTION CAN TAKE TYLENOL NEEDED FOR PAIN /FEVER Current Hospital Diet Patient's current hospital diet: AHA Diet (Heart Healthy) Discharge Diet Recommended Diet: AHA Diet (Heart Healthy) Pending Studies Studies pending at discharge: no Medical Emergencies . Who to Call and When: Medical Emergencies: If at any time you feel your situation is an emergency, please call 911 immediately. . Non-Emergent Contact Non-Emergency issues call your: Primary Care Provider . . "Provider Documentation" section prepared by Zayda Dykes. . VTE Core Measure Inpt VTE Proph given/why not?: Deb Petit, KIP's
[2017-03-02] MEDS ORDERED: MRLP17 PO (16:00)
[2017-03-02] MEDS ORDERED: HYDROCORTISONE HC 2.5% CRM 30GM TUBE EXT ONE (16:00)
--- NOTE | 2017-03-02 16:24 | Progress Note ---
Progress Note Date of Service Mar 02, 2017. Progress Note ATTENDING NOTE : Pt presents with over flow diarrhea fecal impaction leading to passage of liquid stool Xray KUB 02/28/17 : Moderate volume of formed stool throughout the transverse colon is noted with a nonobstructive bowel gas pattern. D/w GI team pt is ordered Fleet enema Q6hrs to mobilize stool impacted in transverse colon repeat KUB tomorrow to assess improvement GI eval requested for further assistance
[2017-03-02] MEDS: SOD PHOSPHATE/SOD BIPHOSPHATE ENEMA 132 ML BTL PR SCH (17:02)
[2017-03-02] MEDS: HYDROCORTISONE HC 2.5% CRM 30GM TUBE EXT SCH (20:56)
[2017-03-02] MEDS: POLYETHYLENE (MIRALAX) 17 GM PACK PO SCH (20:56)
[2017-03-02] MEDS: DOCUSATE SODIUM 100 MG CAP PO SCH (20:57)
[2017-03-02 22:38] VITALS: BP 164/73; PULSE 73; TEMP 36.8; O2SAT 96
[2017-03-03] MEDS: SOD PHOSPHATE/SOD BIPHOSPHATE ENEMA 132 ML BTL PR SCH ×2 (00:16→05:37)
[2017-03-03 07:15] VITALS: BP 165/94; PULSE 78; TEMP 37.2; O2SAT 97
[2017-03-03 07:24] LABS: HEMATOCRIT 42.9 % (42-52); MEAN CELL VOLUME 100.9 fL (80-100); MEAN CORPUSCULAR HEMOGLOBIN 34.6 pg (25-34); MEAN CORPUSCULAR HGB CONC 34.3 g/dl (32-36); MEAN PLATELET VOLUME 12.3 fL (7.4-10.4); PLATELET COUNT 236 K/uL (130-400); RED BLOOD COUNT 4.25 M/uL (4.7-6.1); WHITE BLOOD COUNT 10.17 K/uL (4.8-10.8)
[2017-03-03] MEDS: HYDROCORTISONE HC 2.5% CRM 30GM TUBE EXT SCH (08:02)
[2017-03-03] MEDS: POLYETHYLENE (MIRALAX) 17 GM PACK PO SCH (08:03)
[2017-03-03] MEDS: MIDODRINE 2.5 MG TAB PO SCH (08:03)
[2017-03-03] MEDS: FAMOTIDINE 20 MG TAB PO SCH (08:03)
[2017-03-03] MEDS: LACTASE 3000 UNIT TAB PO SCH ×2 (08:03→11:52)
[2017-03-03] MEDS: DOCUSATE SODIUM 100 MG CAP PO SCH (08:03)
[2017-03-03] MEDS: LACTOBACILLUS ACIDOPHILUS (FLORANEX) TAB PO SCH ×2 (08:03→11:52)
[2017-03-03] MEDS: PANTOprazole SOD 40 MG TAB PO SCH (08:03)
--- NOTE | 2017-03-03 08:57 | DIAGNOSTIC IMAGING REPORT ---
KUB HISTORY: FECAL IMPACTION COMPARISON: KUB 02/28/2017. FINDINGS: The bowel gas pattern is unremarkable. There are no dilated loops of small bowel to suggest an obstruction. No renal calculi. No ureteral calculi. No pneumoperitoneum or pneumatosis. Surgical clips and suture material seen within the pelvis. Mild degenerative changes and mild dextroscoliosis of the lumbar spine. Decreased stool within the colon. IMPRESSION: 1. No evidence for bowel obstruction. 2. Decreased throughout the colon. Electronically signed by: Heri Rosado M.D. 03/03/2017 8:55 AM Dictated Date/Time: 03/03/2017 8:43 AM
--- NOTE | 2017-03-03 09:27 | Gastrointestinal Consultation ---
Gastrointestinal Consultation Date of Consultation: Mar 03, 2017 Attending Physician: Donis Consulting Physician: Quan Reason for Consultation: fecal impaction, constipation History of Present Illness Patient is a 86 year old male w/ history of dementia, AFIB on plavix/ASA and others listed below who presented through the ED for evaluation of diarrhea and BRBPR. Pt was seen and evaluated, chart reviewed. No family at bedside. He is alert to person, not to place or time. GI was consulted for management as imaging was suggestive of constipation, likely overflow diarrhea. In the ED rectal exam with grossly blood stools. He is not having any abdominal pain, no diarrhea, no rectal bleeding. He tells me had a lot of stool this AM. Per nursing, pt had numerous large BMs after enema this AM. Stool was brown, yellow. No black or bloody stools. KUB improved but will moderate fecal load. Pt notes that today he feels well. He has just returned from KUB. He denies fever, chills, CP, SOB. KUB 03/03/17: No evidence for bowel obstruction. Decreased stool throughout the colon. KUB 02/28/17: Subsegmental left basilar opacities favor atelectasis. Moderate volume of formed stool throughout the transverse colon is noted with a nonobstructive bowel gas pattern. No pneumatosis identified. Family history of colon cancer: none EGD: none Colonoscopy: none Past Medical/Surgical History Medical Problems: (1) Confusion Status: Acute (2) Constipation Status: Acute (3) Elevated WBC count Status: Acute (4) Lower GI bleed Status: Acute (5) UTI (urinary tract infection) Status: Acute Social History Problems: (1) Altered mental status Status: Acute (2) Fall Status: Acute (3) Lip laceration Status: Acute (4) Non-hemorrhagic cerebrovascular accident (CVA) Status: Acute (5) Syncope Status: Acute Past Medical History: dementia, afib on Coumadin, appendicial CA, carpal tunnel, CVA, kidney stones, dementia, constipation, GERD, lactose intolerance, prostate CA s/p prostatectomy , OCD, hypotension, neuropathy Past Surgical History: splenectomy, cataract surgery, MOHS, cholecystectomy Family History FH: Alzheimers disease MOTHER FH: CAD (coronary artery disease) FATHER FHx: alcohol abuse FATHER Kidney disease FATHER Social History Smoking Status: Never Smoker Alcohol Use: none Drug Use: none Marital Status: Housing Status: detention Occupation Status: retired Allergies Coded Allergies: Aspartame (Verified Allergy, Unknown, UNK, 05/17/16) Cephalexin (Verified Allergy, Unknown, UNK, 05/17/16) Lactose (Verified Allergy, Unknown, 05/17/16) LACTOSE INTOLERANT Molds & Smuts (Verified Allergy, Unknown, UNKNOWN, 02/28/17) POLLEN (Verified Allergy, Unknown, UNKNOWN, 02/28/17) FROM GMG Yellow Dye (Verified Allergy, Unknown, UNK, 05/17/16) Donepezil (Verified Adverse Reaction, Unknown, sleepling too much, 08/15/15 ) gmg Rivastigmine (Verified Adverse Reaction, Unknown, drowsiness, 08/15/15) gmg Current Medications Home Meds and Scripts Medications Dose Route/Sig Max Daily Dose Days Date Category Miralax (Polyethylene) 17 Gm Pow 17 Gm PO BID 30 03/02/17 Rx Anusol-Hc 2.5% (Hydrocortisone 2.5% (Rectal)) 2.5 % Cre 1 Appln TOP BID 03/02/17 Rx [Tylenol 500MG/5ML] 3.25 Ml PO DAILY 02/28/17 Reported [Tylenol 500MG/5ML] 6.5 Ml PO Q4 PRN 02/28/17 Reported Plavix (Clopidogrel Bisulfate) 75 Mg Tab 75 Mg PO DAILY 02/28/17 Reported Calmoseptine (Menthol-Zinc Oxide) 1 Oin Oin 1 Appln TOP Q6 PRN 02/28/17 Reported Lactaid (Lactase) 3,000 Unit Tab 9,000 Units PO TIDM 05/17/16 Reported Pepcid (Famotidine) 20 Mg Tab 20 Mg PO DAILY 05/17/16 Reported Acidophilus (Lactobacillus) 1 Cap Cap 1 Cap PO TID 05/17/16 Reported D 1000 (Cholecalciferol) 1,000 Unit Cap 1,000 Inter.unit PO DAILY 05/17/16 Reported Oyster Shell Calcium + D (Calcium Carbonate-Cholecalcife) 1 Tab Tab 1 Tab PO BIDM 03/12/15 Reported Colace (Docusate Sodium) 100 Mg Cap 1 Cap PO BID 30 03/12/15 Reported Milk Of Magnesia (Magnesium Hydroxide) 30 Ml Susp 30 Ml PO DAILY PRN 03/12/15 Reported Miralax (Polyethylene Glycol 3350) 1 Pow Pow 17 Gm PO DAILY 03/12/15 Reported Bisac-Evac (Bisacodyl) 10 Mg Sup 1 Supp LA DAILY PRN 03/12/15 Reported Midodrine HCl (Midodrine) 2.5 Mg Tab 2.5 Mg PO BID 04/07/14 Reported Aspirin Ec (Aspirin) 81 Mg Tab 81 Mg PO DAILY 09/06/13 Reported Review of Systems Constitutional: No fever, No chills Respiratory: No cough, No sputum, No shortness of breath Cardiac: No chest pain Abdomen: No pain, No nausea, No vomiting, No diarrhea, No constipation, No GI bleeding Physical Exam Date Time Temp Pulse Resp B/P (MAP) Pulse Ox O2 Delivery O2 Flow Rate FiO2 03/03/17 08:45 Room Air 03/03/17 07:15 37.2 78 18 165/94 (117) 97 Room Air 03/03/17 00:15 Room Air 03/02/17 22:38 36.8 73 21 164/73 (103) 96 Room Air 03/02/17 16:00 Room Air 03/02/17 15:32 36.8 63 21 133/71 (91) 96 Room Air General Appearance: no apparent distress Eyes: PERRL ENT: hearing grossly normal Neck: supple, no adenopathy Respiratory/Chest: lungs clear, normal breath sounds Cardiovascular: regular rate, rhythm Abdomen: normal bowel sounds, non tender, soft, no organomegaly Neurologic/Psych: alert, normal mood/affect, + disoriented (only oriented to self) Skin: normal color, no jaundice, warm/dry, no rash Laboratory Results Last 24 Hours Test 03/02/17 17:00 03/03/17 07:13 Stool Occult Blood POSITIVE White Blood Count 10.17 K/uL Red Blood Count 4.25 M/uL Hemoglobin 14.7 g/dL Hematocrit 42.9 % Mean Corpuscular Volume 100.9 fL Mean Corpuscular Hemoglobin 34.6 pg Mean Corpuscular Hemoglobin Concent 34.3 g/dl RDW Standard Deviation 50.6 fL RDW Coefficient of Variation 13.6 % Platelet Count 236 K/uL Mean Platelet Volume 12.3 fL Impression Patient is a pleasant 86 year old male w/ dementia and afib on ASA, plavix who presented through the ED for evaluation of diarrhea and BRBPR streaking on the toilet tissue. In ED rectal exam w/ stool and gross blood. C.diff negative, culture pending. KUB suggestive of constipation, no evidence of SBO. BRBPR resolved first day of admission w/ stable labs. GI consulted as pt did not have an adequate response to miralax. Advised enema TID x 24 hours w/ repeat KUB this am w/ GI evaluation. Pt was evaluated this AM, KUB improved but still with moderate stool. Pt has never had a colonoscopy, differentials were discussed w/ the pt including chronic constipation, impaired motility, colon polyp etc. No family at bedside, will need to discuss with family when present. Plan Please page midlevel beeper when family is present No plan for colonoscopy Daily H&H while admitted C.diff negative Follow up stool culture Fleets enema q6h x 24 hours Miralax 17 g BID Colace 100 g BID GI to sign off. Please call with any questions, or concerns. Thank you for this consult. I have seen and examined the patient with SELINA Kelly whose note reflects our findings and plan. New onset of constipation. Agree with bowel regimen recommendations. Patient's does not wish to pursue a colonoscopy given his underlying comorbidities and I think this is certainly reasonable. please call with questions.
[2017-03-03] MEDS ORDERED: SOD PHOSPHATE/SOD BIPHOSPHATE ENEMA 132 ML BTL PR SCH (11:00)
[2017-03-03] MEDS ORDERED: SODI1ENE PR (11:52)
[2017-03-03] MEDS ORDERED: SOD PHOSPHATE/SOD BIPHOSPHATE ENEMA 132 ML BTL PR STA (13:23)
[2017-03-03 14:54] VITALS: BP 165/94; PULSE 78; TEMP 37.2; O2SAT 97
--- NOTE | 2017-03-03 16:34 | Discharge Summary ---
Discharge Summary Date of Service Mar 03, 2017. Discharge Summary Admission Date: Mar 02, 2017 at 15:28 Discharge Date: Mar 03, 2017 Discharge Disposition: Home with services Principal Diagnosis: SEVERE CONSTIPATION -OVERFLOW DIARRHEA Procedures: XRAY KUB : 02/28/17 IMPRESSION: 1. Subsegmental left basilar opacities favor atelectasis. 2. Moderate volume of formed stool throughout the transverse colon is noted with a nonobstructive bowel gas pattern. 3. No pneumatosis identified. CHEST XRAY : IMPRESSION: 1. Subsegmental left basilar opacities favor atelectasis. 2. Moderate volume of formed stool throughout the transverse colon is noted with a nonobstructive bowel gas pattern. 3. No pneumatosis identified. XRAY KUB 03/02/17 : IMPRESSION: 1. No evidence for bowel obstruction. 2. Decreased throughout the colon. Consultations: [facility] Medication Reconciliation New Medications: Hydrocortisone 2.5% (Rectal) (Anusol-Hc 2.5%) 2.5 % Cre 1 APPLN TOP BID, #30 GM 1 Refill Sodium Phosphates (Fleet Enema Six Pack) 1 Jocelyn Jocelyn 1 EA MO DAILY PRN for Constipation for 30 Days OVER THE COUNTER Polyethylene (Miralax) 17 Gm Pow 17 GM PO BID for 30 Days Continued Medications: Aspirin (Aspirin Ec) 81 Mg Tab 81 MG PO DAILY Bisacodyl (Bisac-Evac) 10 Mg Sup 1 SUPP MO DAILY PRN for Constipation Calcium Carbonate-Cholecalcife (Oyster Shell Calcium + D) 1 Tab Tab 1 TAB PO BIDM Cholecalciferol (D 1000) 1,000 Unit Cap 1000 INTER.UNIT PO DAILY Docusate Sodium (Colace) 100 Mg Cap 1 CAP PO BID for 30 Days, #60 CAP Famotidine (Pepcid) 20 Mg Tab 20 MG PO DAILY, TAB Lactase (Lactaid) 3,000 Unit Tab 9000 UNITS PO TIDM Lactobacillus (Acidophilus) 1 Cap Cap 1 CAP PO TID Magnesium Hydroxide (Milk Of Magnesia) 30 Ml Susp 30 ML PO DAILY PRN for Constipation, ML Menthol-Zinc Oxide (Calmoseptine) 1 Oin Oin 1 APPLN TOP Q6 PRN for IRRITATION Midodrine (Midodrine HCl) 2.5 Mg Tab 2.5 MG PO BID [Tylenol 500MG/5ML] () 6.5 ML PO Q4 PRN for Pain or Fever [Tylenol 500MG/5ML] () 3.25 ML PO DAILY Discontinued Medications: Clopidogrel (Plavix) 75 Mg Tab 75 MG PO DAILY, TAB Polyethylene Glycol 3350 (Miralax) 1 Pow Pow 17 GM PO DAILY, GM Referrals At Discharge Follow up Referrals: Physician Referral - 03/09/17 with Rober Ramirez D.O. 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 Most of the history is obtained by the patient's and son who are at bedside. Pt. is pleasantly demented. As per family, he developed diarrhea early in the morning, in the afternoon and once prior to arrival. All episodes of diarrhea had dark streaks of blood associated with it. As per records, other patients at [facility] dementia unit have had diarrhea. No recent change in medications. No other change in health. Physical Exam (per Admitting): General Appearance: no apparent distress, + pertinent finding (pleasantly demented; hums to himself at baseline) Head: normocephalic, atraumatic Eyes: normal inspection ENT: hearing grossly normal Neck: supple Respiratory/Chest: chest non-tender, lungs clear, normal breath sounds, no respiratory distress, no accessory muscle use Cardiovascular: regular rate, rhythm, no edema, no murmur Abdomen/GI: normal bowel sounds, non tender, soft Extremities/Musculoskelatal: normal inspection, no calf tenderness, normal capillary refill, no pedal edema, normal range of motion Neurologic/Psych: no motor/sensory deficits, alert, + pertinent finding (+ dementia) Skin: normal color Lymphatic: no adenopathy Hospital Course CONSTIPATION /FECAL IMPACTION/OVER FLOW DIARRHEA Xray KUB 02/28/17 : Moderate volume of formed stool throughout the transverse colon is noted with a nonobstructive bowel gas pattern. possible over flow diarrhea causing the symptom on presentation fecal impaction leading to passage of liquid stool pt is ordered Fleet enema Q6hrs to mobilize stool impacted in transverse colon KUB today 1. No evidence for bowel obstruction. 2. Decreased throughout the colon. pt is stable to return to [facility] today increased bowel regimen to prevent constipation GI consulted -appreciate input pt should be discharged on Miralax 17 gm BID Colace BID utilize fleet enema PRN if no BP for 24 hrs BLOOD IN STOOL no further episode had multiple bowel movement with laxative -with out any evidence of bleeding possible hemorrhoidal bleed due to marked constipation H&H remains stable 14.3-> 14.2-> 14.7 . stable vitals -streaks of blood is stool could be possibly due to Hemorrhoidal bleeding associated with straining with constipation cont increased bowel regimen -Miralax BID, colace BID diet advanced to [facility] , tolerating well no Nausea or vomiting Anusol MO cream BID for hemorrhoids NETO CKD stage 3 resolved Cr at baseline likely secondary to diarrhea due to dehydration Creatinine on admission 1.5, baseline is closer to 1.2 D/c IVF Elevated WBC normal white count today Possible related to reactive CXR showed Subsegmental left basilar opacities favor atelectasis. Afebrile diarrhea has resolved , stool culture ordered -sample could not be obtained UA + leukocyte esterase ordered for urine culture Elevated Lipase Possible related to dehydration/ and recent GI symptoms Resolved-normal lipase level tolerating diet D/c IVF Paroxysmal A. Fib currently in NSR rate is controlled Aspirin resumed HX CVA CVA on May 2016 no focal neurological deficit pt should be on monotherapy Aspirin 81 mg daily given pt's advanced age and risk for bleeding , dual antiplatelets may not be appropriate Plavix will be discontinued resume Aspirin 81 mg daily once GI bleed stops Postural Hypotension : BP stable cont Midodrine Hyponatremia; Chronic Na at approx baseline 135 D/C IV NSS Dementia stable DVT ppx SCDs DNR/DNI DISPOSITION resident at [facility] /[facility] PT/OT evflaco appreciated , at baseline functional status stable to return back to [facility] today will provide transport for return possible discharge in 1-2 days if no further episode of blood in stool Medicine follow up with Dr Ramirez Total time spent on discharge = 40 mins This includes examination of the patient, discharge planning, medication reconciliation, and communication with other providers. Discharge Instructions Discharge Instructions Date of Service Mar 02, 2017. Admission Reason for Admission: Lower Gi Bleed Discharge Discharge Diagnosis / Problem: SEVERE CONSTIPATION -OVERFLOW DIARRHEA Discharge Goals Goal(s): Decrease discomfort, Increase independence, Improve disease control, Diagnostic testing, Therapeutic intervention Activity Recommendations Activity Limitations: resume your previous activity . Instructions / Follow-Up Instructions / Follow-Up HOSPITAL FOLLOW UP : 03/09/2017 11:00 AM Rober Ramirez DO General Internal Medicine [facility] IT IS VERY IMPORTANT TO PREVENT CONSTIPATION IN SEVERE CASE IT MAY LEAD TO HOSPITAL ADMISSION ADD PLENTY OF FIBERS , ADEQUATE FLUIDS TO DIET INCREASE MIRALAX TO TWICE DAILY , PLEASE ADD ADDITIONAL STOOL SOFTENER NEEDED TO HAVE ONE BOWEL MOVEMENT DAILY DO NOT TAKE PLAVIX CONTINUE ASPIRIN 81 MG DAILY WITH MEALS AVOID NAPROXEN . ALEVE, MOTRIN , ADVIL . IBUPROFEN, HIGH DOSE ASPIRIN -WHICH CAN CAUSE IRRITATION IN STOMACH -MAY LEAD TO BLEEDING AND WORSENING OF KIDNEY FUNCTION CAN TAKE TYLENOL NEEDED FOR PAIN /FEVER Current Hospital Diet Patient's current hospital diet: AHA Diet (Heart Healthy) Discharge Diet Recommended Diet: AHA Diet (Heart Healthy) Pending Studies Studies pending at discharge: no Medical Emergencies . Who to Call and When: Medical Emergencies: If at any time you feel your situation is an emergency, please call 911 immediately. . Non-Emergent Contact Non-Emergency issues call your: Primary Care Provider . . "Provider Documentation" section prepared by Zayda Dykes. . VTE Core Measure Inpt VTE Proph given/why not?: Deb Petit, SCD's Additional Copies To Rober Ramirez D.O.
--- NOTE | 2017-03-04 08:58 | EDITING REQUIRED CODING QUERY ---
CODING QUERY To promote full compliance with coding requirements relating to patient care, provider participation is requested in all cases of picker feeder uncertainty. Please assist us with the question(s) below: Coding Question(s): Please clarify below, regarding the abbreviation NETO, as it is not a valid abbreviation. ( x ) NETO - Acute Kidney Injury ( ) NETO - Other: Specify Physician's Response(s): Thank you Sylvia Ferreira Principal Diagnosis: "_that condition established after study, to be chiefly responsible for occasioning the admission of the patient to the hospital for care." Co-Existing Principal Diagnosis: "_when two or more diagnoses equally meet the criteria for principal diagnosis as determined by the circumstances of admission, diagnostic work up, and/or therapy provided, and the Alphabetic Index, Tabular List, or another coding guideline does not provide sequencing direction, any one of the diagnoses may be sequenced first." "When the physician has documented what appears to be a current diagnosis in the body of the record, but has not included the diagnosis in the final diagnostic statement, the physician should be asked whether the diagnosis should be added." (Source Coding Clinic 2 QTR90. p3-4)
== END 2017-03-03 15:50 | disposition home or self-care (01) | DRG 378 ==
LOC: C.EDB 17:30 → C.MS2W 20:59 → ENRESERV 21:05 → CANRESERV 21:05 → ENRESERV 21:06 → OBSVTOIN 03-02 15:28
PROVIDERS: ADMIT Family Medicine; ATTEND Hospitalist
DX: K92.1 Melena (principal); E87.1 Hypo-osmolality and hyponatremia; N17.9 Acute kidney failure, unspecified; J98.11 Atelectasis; K59.09 Other constipation; D72.829 Elevated white blood cell count, unspecified; R19.7 Diarrhea, unspecified; K64.9 Unspecified hemorrhoids; N18.3 Chronic kidney disease, stage 3 (moderate); I95.1 Orthostatic hypotension; K21.9 Gastro-esophageal reflux disease without esophagitis; I48.0 Paroxysmal atrial fibrillation; F03.90 Unspecified dementia, unspecified severity, without behavioral disturbance, psychotic disturbance, mood disturbance, and anxiety; Z79.899 Other long term (current) drug therapy; Z79.82 Long term (current) use of aspirin; Z79.02 Long term (current) use of antithrombotics/antiplatelets; Z66 Do not resuscitate; Z86.73 Personal history of transient ischemic attack (TIA), and cerebral infarction without residual deficits; Z85.46 Personal history of malignant neoplasm of prostate; Z85.828 Personal history of other malignant neoplasm of skin; Z85.038 Personal history of other malignant neoplasm of large intestine; Z82.49 Family history of ischemic heart disease and other diseases of the circulatory system; Z82.0 Family history of epilepsy and other diseases of the nervous system; Z81.1 Family history of alcohol abuse and dependence